=== PATIENT | male | born 1955 | race Caucasian/White ===

== ENCOUNTER 2016-08-03 20:15 | Emergency (ER) | payer MEDICAID ==
--- NOTE | 2016-08-03 23:43 | EDM.PDOC ---
ED HPI GENERAL MEDICAL PROBLEM - General Chief Complaint: General Stated Complaint: LOW BP/FELL/CONFUSION/DIZZY Time Seen by Provider: 08/03/16 21:40 Source of Information: Reports: Patient, Family History Limitations: Reports: No limitations - History of Present Illness INITIAL COMMENTS - FREE TEXT/NARRATIVE: pt was found on the floor and the pt has no recall of the incident. He seemed more confused this pm. His is concerned about the tremor He is also having pin in the left shoulder Onset: gradual Duration: Day(s):, Other (pt was on the floor this during last nite and he has no recall of that. ) Location: Reports: upper extremity, left Associated Symptoms: Reports: confusion, weakness - Related Data Allergies Allergy/AdvReac Type Severity Reaction Status Date / Time Latex, Natural Rubber Allergy Cannot Verified 08/03/16 22:03 Remember Home Meds: Home Meds Carvedilol 6.25 mg PO BID 09/04/14 [History] Citalopram [Citalopram HBr] 40 mg PO BEDTIME 09/04/14 [History] Levothyroxine 175 mcg PO QAM 12/29/14 [History] Fluticasone/Salmeterol [Advair 250-50 Diskus] 1 puff INH BID 05/27/15 [History] Aspirin 81 mg PO QAM 05/29/15 [History] Simvastatin [Zocor] 40 mg PO BEDTIME 12/08/15 [History] Hydrocodone/Acetaminophen [Hydrocodon-Acetaminophen 5-325] 1 tab PO ASDIRECTED PRN 12/20/15 [History] Pantoprazole 20 mg PO DAILY 04/13/16 [History] Zolpidem [Ambien] 10 mg PO BEDTIME PRN 05/15/16 [History] Calcium Carb/Vitamin D3/Vit K1 [Calcium + Vit D & K Chew] 1 tab PO DAILY [History] Cholecalciferol (Vitamin D3) [Vitamin D3] 1,000 units PO DAILY 05/28/16 [History ] Cyanocobalamin (Vitamin B-12) [Vitamin B-12] 1,000 mcg SL DAILY 05/28/16 [ History] Diclofenac Sodium [Voltaren 1% Gel] 4 gm TOP QID PRN 05/28/16 [History] Folic Acid 1 mg PO DAILY 05/28/16 [History] Multivitamin [Multiple Vitamins] 1 tab PO DAILY 05/28/16 [History] Methocarbamol [Methocarbamol] 500 mg PO Q6H PRN 06/10/16 [History] oxyCODONE HCl/Acetaminophen [Percocet 5-325 mg Tablet] 1 - 2 tab PO Q4H PRN 09/21 [History] predniSONE [Prednisone] 10 mg PO DAILY 06/10/16 [History] Past Medical History HEENT History: Reports: Allergic rhinitis, Cataract, Hard of hearing, Impaired vision, Other (see below) Other HEENT History: deaf right ear Cardiovascular History: Reports: Angina, CAD, Heart Failure, High cholesterol, Hypertension, [place], SOB on exertion, Stents, Other (see below) Other Cardiovascular History: recent chest pain Respiratory History: Reports: COPD, Pneumonia, recurrent, Sleep apnea, SOB, Other (see below) Other Respiratory History: C pap at night. Home O2 at night. Gastrointestinal History: Reports: Hemorrhoids, Other (see below) Other Gastrointestinal History: girth 63" last bm 02/03/15. 88 # wt loss since may. painful zyphoid process. 06/01/16 fluid filled mass removed from zyphoid process Musculoskeletal History: Reports: Arthritis, Back pain, chronic, Fracture, Osteoarthritis Other Musculoskeletal History: T1-C4 neck fusion, cortisone shots in knees/ shoulders Neurological History: Reports: Concussion Psychiatric History: Reports: Depression Endocrine/Metabolic History: Reports: Hypothyroidism, Obesity/BMI 30+ Hematologic History: Reports: B12 deficiency - Infectious Disease History Infectious Disease History: Reports: Chicken pox - Past Surgical History HEENT Surgical History: Reports: Cataract surgery, Oral surgery, Tonsillectomy Cardiovascular Surgical History: Reports: Coronary artery stent, Other (see below) Other Cardiovascular Surgeries/Procedures: angiogram GI Surgical History: Reports: Bariatric procedure, Cholecystectomy, Colonoscopy , EGD, Hernia, abdominal, Polypectomy Neurological Surgical History: Reports: C-Spine, Spinal fusion Musculoskeletal Surgical History: Reports: Arthroscopic knee Social & Family History - Tobacco Use Smoking Status *Q: Never Smoker Years of Tobacco use: 40 Packs/Tins Daily: 0 Used Tobacco, but Quit: Yes Month Tobacco Last Used: 0 Second Hand Smoke Exposure: No - Caffeine Use Caffeine Use: Reports: Tea - Alcohol Use Days Per Week of Alcohol Use: 0 - Recreational Drug Use Recreational Drug Use: No - Living Situation & Occupation Living situation: Reports: , with spouse Occupation: retired ED ROS GENERAL - Review of Systems Review Of Systems: See Below Constitutional: Reports: other (confusion) HEENT: Reports: No symptoms Respiratory: Reports: no symptoms Cardiovascular: Reports: No symptoms Endocrine: Reports: no symptoms GI/Abdominal: Reports: No symptoms : Reports: no symptoms Musculoskeletal: Reports: no symptoms Skin: Reports: no symptoms Neurological: Reports: confusion, other (pt is having severe memory issues. ) Psychiatric: Reports: Confusion, Other (pt has been forgetful for awhile but this is much worse. ) ED EXAM, GENERAL - Physical Exam Exam: See Below Free Text/Narrative:: Pt arrived with increasing confusion. It is difficult to get an idea when this seemed to start getting bad but by history it is definitely worse. He was found lying on the floor last nite and he had no idea how he got there. He does use narcotics and at this point Dr Neumann advised him not to use any at this point. Exam Limited By: Other (pt is quite forgetful.) General Appearance: alert, other (pt is just not able to remember things. I am not able to figure out exactly when that started. ) Ears: normal TMs Nose: normal inspection Throat/Mouth: Normal inspection Head: atraumatic Neck: normal inspection Respiratory/Chest: no respiratory distress Cardiovascular: regular rate, rhythm GI/Abdominal: soft, non tender (Male) Exam: Deferred Rectal (Males) Exam: Deferred Back Exam: normal inspection Extremities: normal inspection Neurological: alert, inattentive, confused, disoriented, slow to respond Course - Vital Signs Last Recorded V/S: Last Vital Signs Temp 37.0 C 08/03/16 23:59 Pulse 56 L 08/03/16 23:59 Resp 16 08/03/16 23:59 BP 144/84 H 08/03/16 23:59 Pulse Ox 98 08/03/16 23:59 - Orders/Labs/Meds Orders: Active Orders 24 hr Category Date Time Status EKG Documentation Completion [RC] ASDIRECTED Care 08/03/16 23:44 Active Abdomen Pelvis w Cont [CT] Stat Exams 08/04/16 01:01 Taken Head wo Cont [CT] Stat Exams 08/03/16 21:54 Taken Iopamidol [Isovue-300 (61%)] Med 08/04/16 01:15 Active 150 ml IV . DIRECTED Sodium Chloride 0.9% [Normal Saline] 1,000 ml Med 08/03/16 23:45 Active IV ASDIRECTED Sodium Chloride 0.9% [Normal Saline] 85 ml Med 08/04/16 01:15 Active IV ASDIRECTED Sodium Chloride 0.9% [Saline Flush] Med 08/04/16 01:07 Active 10 ml FLUSH ASDIRECTED PRN EKG 12 Lead [EK] Routine Ther 08/03/16 23:44 Ordered Medication Orders Sodium Chloride (Normal Saline) 1,000 mls @ 500 mls/hr IV ASDIRECTED MADHU Last Admin: 08/03/16 23:55 Dose: 500 mls/hr Sodium Chloride (Normal Saline) 85 mls @ 3 mls/sec IV ASDIRECTED MADHU Last Admin: 08/04/16 01:28 Dose: 3 mls/sec Iopamidol (Isovue-300 (61%)) 150 ml IV . DIRECTED [facility] Last Admin: 08/04/16 01:28 Dose: 150 ml Sodium Chloride (Saline Flush) 10 ml FLUSH ASDIRECTED PRN PRN Reason: Keep Vein Open Last Admin: 08/04/16 01:28 Dose: 10 ml Labs: Laboratory Tests 08/03/16 08/03/16 08/03/16 Range/Units 22:02 22:02 23:36 WBC 8.7 (4.5-11.0) K/uL RBC 4.75 (4.30-5.90) M/uL Hgb 14.3 (12.0-15.0) g/dL Hct 44.3 (40.0-54.0) % MCV 93 (80-98) fL MCH 30 (27-31) pg MCHC 32 (32-36) % Plt Count 269 (150-400) K/uL Neut % (Auto) 64 (36-66) % Lymph % (Auto) 21 L (24-44) % [place] % (Auto) 13 H (2-6) % Eos % (Auto) 2 (2-4) % Baso % (Auto) 1 (0-1) % Ammonia 7 L (11-32) mmol/L Creatine Kinase (39-308) U/L Troponin I (0.000-0.056) ng/mL Lipase (73-393) U/L TSH, Ultra Sensitive (0.358-3.740) uIU/mL Urine Color [place] Urine Appearance Cloudy Urine pH 5.0 (4.5-8.0) Ur Specific [place] 1.025 (1.008-1.030) Urine Protein Negative (NEGATIVE) mg/dL Urine Glucose (UA) Normal (NEGATIVE) mg/dL Urine Ketones 15 H (NEGATIVE) mg/dL Urine Occult Blood Negative (NEGATIVE) Urine Nitrite Negative (NEGAITVE) Urine Bilirubin Small (NEGATIVE) Urine Urobilinogen 4 (NORMAL) mg/dL Ur Leukocyte Esterase Negative (NEGATIVE) Urine RBC 0-5 (0-5) Urine WBC 0-5 (0-5) Ur Epithelial Cells Moderate Amorphous Sediment Few Urine Bacteria Few Urine Mucus Few 08/03/16 08/03/16 08/04/16 Range/Units 23:45 23:45 00:10 WBC (4.5-11.0) K/uL RBC (4.30-5.90) M/uL Hgb (12.0-15.0) g/dL Hct (40.0-54.0) % MCV (80-98) fL MCH (27-31) pg MCHC (32-36) % Plt Count (150-400) K/uL Neut % (Auto) (36-66) % Lymph % (Auto) (24-44) % [place] % (Auto) (2-6) % Eos % (Auto) (2-4) % Baso % (Auto) (0-1) % Ammonia (11-32) mmol/L Creatine Kinase 96 (39-308) U/L Troponin I < 0.017 (0.000-0.056) ng/mL Lipase (73-393) U/L TSH, Ultra Sensitive 0.592 (0.358-3.740) uIU/mL Urine Color Urine Appearance Urine pH (4.5-8.0) Ur Specific [place] (1.008-1.030) Urine Protein (NEGATIVE) mg/dL Urine Glucose (UA) (NEGATIVE) mg/dL Urine Ketones (NEGATIVE) mg/dL Urine Occult Blood (NEGATIVE) Urine Nitrite (NEGAITVE) Urine Bilirubin (NEGATIVE) Urine Urobilinogen (NORMAL) mg/dL Ur Leukocyte Esterase (NEGATIVE) Urine RBC (0-5) Urine WBC (0-5) Ur Epithelial Cells Amorphous Sediment Urine Bacteria Urine Mucus 08/04/16 Range/Units 01:01 WBC (4.5-11.0) K/uL RBC (4.30-5.90) M/uL Hgb (12.0-15.0) g/dL Hct (40.0-54.0) % MCV (80-98) fL MCH (27-31) pg MCHC (32-36) % Plt Count (150-400) K/uL Neut % (Auto) (36-66) % Lymph % (Auto) (24-44) % [place] % (Auto) (2-6) % Eos % (Auto) (2-4) % Baso % (Auto) (0-1) % Ammonia (11-32) mmol/L Creatine Kinase (39-308) U/L Troponin I (0.000-0.056) ng/mL Lipase 721 H (73-393) U/L TSH, Ultra Sensitive (0.358-3.740) uIU/mL Urine Color Urine Appearance Urine pH (4.5-8.0) Ur Specific [place] (1.008-1.030) Urine Protein (NEGATIVE) mg/dL Urine Glucose (UA) (NEGATIVE) mg/dL Urine Ketones (NEGATIVE) mg/dL Urine Occult Blood (NEGATIVE) Urine Nitrite (NEGAITVE) Urine Bilirubin (NEGATIVE) Urine Urobilinogen (NORMAL) mg/dL Ur Leukocyte Esterase (NEGATIVE) Urine RBC (0-5) Urine WBC (0-5) Ur Epithelial Cells Amorphous Sediment Urine Bacteria Urine Mucus Meds: Medications Generic Name Dose Route Start Last Admin Trade Name Freq PRN Reason Stop Dose Admin Sodium Chloride 1,000 mls @ 500 mls/hr 08/03/16 23:45 08/03/16 23:55 Normal Saline IV 500 mls/hr ASDIRECTED MADHU Administration Sodium Chloride 85 mls @ 3 mls/sec 08/04/16 01:15 08/04/16 01:28 Normal Saline IV 3 mls/sec ASDIRECTED MADHU Administration Iopamidol 150 ml 08/04/16 01:15 08/04/16 01:28 Isovue-300 (61%) IV 150 ml . DIRECTED MADHU Administration Sodium Chloride 10 ml 08/04/16 01:07 08/04/16 01:28 Saline Flush FLUSH 10 ml ASDIRECTED PRN Administration Keep Vein Open - Re-Assessments/Exams Free Text/Narrative Re-Assessment/Exam: 08/04/16 02:26 Pt has elevated liver enzymes with an sgot of 400 and a alt of 363. His bilirubin is 2.2. He hs a normal hg and wbc. He has no abdomanal pain. 08/04/16 02:28 He had a cat scn of the head that showed chronic changes but nothing acute. He had a cat scan of the abdoman pelvis which was neg for acute findings. He does have fatty infiltration. -- of the liver. He was found to be dehydrated and was given a liter of fluid. Departure - Departure Time of Disposition: 02:30 Disposition: Home, Self-Care 01 Condition: fair Clinical Impression: Confusion, Narcotic dependence, Dehydration Forms: ED Department Discharge Care Plan Goals: rtc tomorrow if possible for an MRI of the head, rtc to Er if symptoms are worse. Keep appt with Meche Nolen. push fluids. - My Orders Last 24 Hours: My Active Orders 08/03/16 21:54 Head wo Cont [CT] Stat 08/03/16 23:44 EKG Documentation Completion [RC] ASDIRECTED EKG 12 Lead [EK] Routine 08/03/16 23:45 Sodium Chloride 0.9% [Normal Saline] 1,000 ml IV ASDIRECTED 08/04/16 01:01 Abdomen Pelvis w Cont [CT] Stat 08/04/16 01:07 Sodium Chloride 0.9% [Saline Flush] 10 ml FLUSH ASDIRECTED PRN 08/04/16 01:15 Iopamidol [Isovue-300 (61%)] 150 ml IV . DIRECTED Sodium Chloride 0.9% [Normal Saline] 85 ml IV ASDIRECTED - Assessment/Plan Last 24 Hours: My Active Orders 08/03/16 21:54 Head wo Cont [CT] Stat 08/03/16 23:44 EKG Documentation Completion [RC] ASDIRECTED EKG 12 Lead [EK] Routine 08/03/16 23:45 Sodium Chloride 0.9% [Normal Saline] 1,000 ml IV ASDIRECTED 08/04/16 01:01 Abdomen Pelvis w Cont [CT] Stat 08/04/16 01:07 Sodium Chloride 0.9% [Saline Flush] 10 ml FLUSH ASDIRECTED PRN 08/04/16 01:15 Iopamidol [Isovue-300 (61%)] 150 ml IV . DIRECTED Sodium Chloride 0.9% [Normal Saline] 85 ml IV ASDIRECTED
[2016-08-03] MEDS ORDERED: Sodium Chloride 0.9% 1,000 ML IV SCH (23:45)
[2016-08-04] MEDS ORDERED: Sodium Chloride 0.9% 10 ML Syringe FLUSH PRN (01:07)
[2016-08-04] MEDS ORDERED: Iopamidol 612 MG/ML 150 ML Bottle IV SCH (01:15)
[2016-08-04 04:12] VITALS: BP 172/86
== END 2016-08-04 02:55 | disposition home or self-care (01) ==
LOC: JP.ED 20:15
DX: R41.0 Disorientation, unspecified (principal); E86.0 Dehydration; F11.20 Opioid dependence, uncomplicated; R79.89 Other specified abnormal findings of blood chemistry; I25.10 Atherosclerotic heart disease of native coronary artery without angina pectoris; I50.9 Heart failure, unspecified; E78.00 Pure hypercholesterolemia, unspecified; I10 Essential (primary) hypertension; I25.2 Old myocardial infarction; J44.9 Chronic obstructive pulmonary disease, unspecified; F32.9 Major depressive disorder, single episode, unspecified; E03.9 Hypothyroidism, unspecified; E53.8 Deficiency of other specified B group vitamins; Z91.040 Latex allergy status; Z79.82 Long term (current) use of aspirin; Z79.899 Other long term (current) drug therapy; Z95.5 Presence of coronary angioplasty implant and graft
CPT/HCPCS: 36415; 70450; 74177; 81001; 82140; 82550; 83690; 84443; 84484; 85025; 93005; J7030; J7040; J7050; 96360; 96361; 99285-25

== ENCOUNTER 2016-08-05 08:55 | Emergency (ER) | payer MEDICAID ==
--- NOTE | 2016-08-05 09:23 | EDM.PDOC ---
ED HPI GENERAL MEDICAL PROBLEM - General Chief Complaint: General Stated Complaint: WEAKNESS Time Seen by Provider: 08/05/16 09:10 Source of Information: Reports: Patient, EMS History Limitations: Reports: No limitations - History of Present Illness INITIAL COMMENTS - FREE TEXT/NARRATIVE: 60-year-old male brought in by EMS after having a syncopal episode at home. He' s been having more weakness over the past several months, and increased intermittent tremor. He was seen in the emergency room just 2 days ago for weakness and a large work up including a CT of his head abdomen and pelvis showed no acute findings. Today he had the dog outside, came into the house and was taken the dog's leash off when he felt lightheaded so he stood up to go " laid down" but fainted onto the floor. He did not get injured. He has been doing this more often lately but it scared his so she called the ambulance. He received no treatment in route, was stable, alert with normal vitals. He has an intermittent tremor of the upper extremities bilaterally which does not seem to be related to activity it seems to be related to his emotional state as it increases when he is talking about his symptoms. Associated Symptoms: Reports: other (Patient has chronic pain issues). Denies: fever/chills, headaches Left Shoulder Pain Score (Numeric/FACES): 5 - Related Data Allergies Allergy/AdvReac Type Severity Reaction Status Date / Time Latex, Natural Rubber Allergy Cannot Verified 08/05/16 09:04 Remember Home Meds: Home Meds Carvedilol 6.25 mg PO BID 09/04/14 [History] Citalopram [Citalopram HBr] 40 mg PO BEDTIME 09/04/14 [History] Levothyroxine 175 mcg PO QAM 12/29/14 [History] Fluticasone/Salmeterol [Advair 250-50 Diskus] 1 puff INH BID 05/27/15 [History] Aspirin 81 mg PO QAM 05/29/15 [History] Simvastatin [Zocor] 40 mg PO BEDTIME 12/08/15 [History] Hydrocodone/Acetaminophen [Hydrocodon-Acetaminophen 5-325] 1 tab PO ASDIRECTED PRN 12/20/15 [History] Pantoprazole 20 mg PO DAILY 04/13/16 [History] Zolpidem [Ambien] 10 mg PO BEDTIME PRN 05/15/16 [History] Calcium Carb/Vitamin D3/Vit K1 [Calcium + Vit D & K Chew] 1 tab PO DAILY [History] Cholecalciferol (Vitamin D3) [Vitamin D3] 1,000 units PO DAILY 05/28/16 [History ] Cyanocobalamin (Vitamin B-12) [Vitamin B-12] 1,000 mcg SL DAILY 05/28/16 [ History] Folic Acid 1 mg PO DAILY 05/28/16 [History] predniSONE [Prednisone] 10 mg PO DAILY 06/10/16 [History] Cyanocobalamin (Vitamin B12) [Vitamin B12] 1,000 mcg IJ ASDIRECTED 08/05/16 [ History] Pediatric Multivit Comb No.42 [Flintstones] 1 each PO DAILY 08/05/16 [History] Past Medical History HEENT History: Reports: Allergic rhinitis, Cataract, Hard of hearing, Impaired vision, Other (see below) Other HEENT History: deaf right ear Cardiovascular History: Reports: Angina, CAD, Heart Failure, High cholesterol, Hypertension, [place], SOB on exertion, Stents, Other (see below) Other Cardiovascular History: recent chest pain Respiratory History: Reports: COPD, Pneumonia, recurrent, Sleep apnea, SOB, Other (see below) Other Respiratory History: C pap at night. Home O2 at night. Gastrointestinal History: Reports: Hemorrhoids, Other (see below) Other Gastrointestinal History: girth 63". 88 # wt loss since may. painful zyphoid process. 06/01/16 fluid filled mass removed from zyphoid process Musculoskeletal History: Reports: Arthritis, Back pain, chronic, Fracture, Osteoarthritis Other Musculoskeletal History: T1-C4 neck fusion, cortisone shots in knees/ shoulders Neurological History: Reports: Concussion Psychiatric History: Reports: Depression Endocrine/Metabolic History: Reports: Hypothyroidism, Obesity/BMI 30+ Hematologic History: Reports: B12 deficiency - Infectious Disease History Infectious Disease History: Reports: Chicken pox - Past Surgical History HEENT Surgical History: Reports: Cataract surgery, Oral surgery, Tonsillectomy Cardiovascular Surgical History: Reports: Coronary artery stent, Other (see below) Other Cardiovascular Surgeries/Procedures: angiogram GI Surgical History: Reports: Bariatric procedure, Cholecystectomy, Colonoscopy , EGD, Hernia, abdominal, Polypectomy Neurological Surgical History: Reports: C-Spine, Spinal fusion Musculoskeletal Surgical History: Reports: Arthroscopic knee Social & Family History - Tobacco Use Smoking Status *Q: Never Smoker Years of Tobacco use: 40 Packs/Tins Daily: 0 Used Tobacco, but Quit: Yes Month Tobacco Last Used: 0 Second Hand Smoke Exposure: No - Caffeine Use Caffeine Use: Reports: Tea - Alcohol Use Days Per Week of Alcohol Use: 0 - Recreational Drug Use Recreational Drug Use: No - Living Situation & Occupation Living situation: Reports: , with spouse Occupation: retired ED ROS GENERAL - Review of Systems Review Of Systems: See Below Constitutional: Reports: weakness. Denies: fever, chills Respiratory: Denies: shortness of breath Cardiovascular: Reports: Lightheadedness. Denies: Chest pain, Palpitations GI/Abdominal: Reports: Other (History of gastric bypass) : Reports: no symptoms Skin: Reports: bruising (Has some bruising on his left forearm from recent lab draws) Neurological: Reports: other (Patient is struggling with intermittent upper extremity tremor for the past several months) ED EXAM, GENERAL - Physical Exam Exam: See Below Exam Limited By: No limitations General Appearance: alert, no apparent distress Eye Exam: bilateral eye: EOMI, PERRL Throat/Mouth: Normal inspection Neck: No: carotid bruit Respiratory/Chest: no respiratory distress, lungs clear Cardiovascular: regular rate, rhythm, extra beats GI/Abdominal: soft, non tender Neurological: alert, oriented, no motor/sensory deficits, other (Patient has a fairly significant upper extremity rhythmic tremor which is absent when he is at rest) Skin Exam: Warm, Dry, Other (Some bruising present on the left forearm) Course - Vital Signs Last Recorded V/S: Last Vital Signs Temp 96.4 F 08/05/16 09:07 Pulse 60 08/05/16 09:07 Resp 16 08/05/16 09:07 BP 148/111 H 08/05/16 09:07 Pulse Ox 97 08/05/16 09:07 Orthostatic Blood Pressure [ 144/89 Standing] Orthostatic Blood Pressure [ 144/97 Sitting] Orthostatic Blood Pressure [ 144/81 Supine] - Orders/Labs/Meds Labs: Laboratory Tests 08/05/16 Range/Units 09:24 Sodium 142 (140-148) mmol/L Potassium 4.3 (3.6-5.2) mmol/L Chloride 105 (100-108) mmol/L Carbon Dioxide 31 (21-32) mmol/L Anion Gap 6.3 (5.0-14.0) mmol/L BUN 13 (7-18) mg/dL Creatinine 1.0 (0.8-1.3) mg/dL Est Cr Clr Drug Dosing 75.33 mL/min Estimated GFR (MDRD) > 60 (>60) Glucose 101 (74-106) mg/dL Calcium 8.5 (8.5-10.1) mg/dL - Re-Assessments/Exams Free Text/Narrative Re-Assessment/Exam: 08/05/16 09:42 His ER visit from 2 days ago was reviewed, electrolytes weren't drawn so a BMP was obtained. Orthostatic blood pressures were done and were normal. 08/05/16 09:57 Patient rested quietly without tremor while awaiting his BMP. Labs returned completely normal. His and [id number] then came in and while the patient was "sleeping" they were asking me questions about his health. Interestingly when they asked me about his tremor despite him being asleep he started to exhibit some tremor symptoms. They did not last long. He was discharged with a diagnosis of vasovagal syncope and will recheck with Meche Glynn in the clinic at 11:30 this morning as scheduled. Departure - Departure Time of Disposition: 11:05 Disposition: Home, Self-Care 01 Condition: good Clinical Impression: Syncope, vasovagal, Intermittent tremor Instructions: Tremor, Syncope, [id number] Referrals: PCP,None [Primary Care Provider] - Forms: ED Department Discharge Care Plan Goals: Recheck with Meche Glynn at 11:30 as scheduled.
[2016-08-05 09:27] VITALS: BP 148/111
== END 2016-08-05 11:05 | disposition home or self-care (01) ==
LOC: JP.ED 08:55
DX: R55 Syncope and collapse (principal); R25.1 Tremor, unspecified; I25.2 Old myocardial infarction; I25.10 Atherosclerotic heart disease of native coronary artery without angina pectoris; I20.9 Angina pectoris, unspecified; I50.9 Heart failure, unspecified; I10 Essential (primary) hypertension; E78.00 Pure hypercholesterolemia, unspecified; J44.9 Chronic obstructive pulmonary disease, unspecified; F32.9 Major depressive disorder, single episode, unspecified; E03.9 Hypothyroidism, unspecified; E66.9 Obesity, unspecified; Z68.35 Body mass index [BMI] 35.0-35.9, adult; Z98.49 Cataract extraction status, unspecified eye; Z95.5 Presence of coronary angioplasty implant and graft; Z98.84 Bariatric surgery status; Z90.49 Acquired absence of other specified parts of digestive tract; Z98.1 Arthrodesis status; Z98.890 Other specified postprocedural states; Z79.82 Long term (current) use of aspirin; Z79.899 Other long term (current) drug therapy; Z91.040 Latex allergy status
CPT/HCPCS: 36415; 80048; 99284

== ENCOUNTER 2016-08-08 23:21 | Emergency (ER) | payer MEDICAID ==
--- NOTE | 2016-08-08 23:42 | EDM.PDOC ---
ED HPI GENERAL MEDICAL PROBLEM - General Chief Complaint: General Stated Complaint: tremors Time Seen by Provider: 08/08/16 23:25 Source of Information: Reports: Patient, EMS History Limitations: Reports: No limitations - History of Present Illness INITIAL COMMENTS - FREE TEXT/NARRATIVE: 60-year-old male brought in because of a brief period of lightheadedness and weakness at home, it seems to have resolved now. No fevers or chills, no cough. He was just seen in the emergency room a few days ago after being hospitalized for syncope, he also has persistent intermittent tremor. The tremor seems to be more behavioral or psychosomatic than real, history was active in route until EMS told him to stop the tremor so they did take his blood pressure which he did. When I walked in the room he had no tremor until I started talking to him and his tremor began. Severity: mild Associated Symptoms: Reports: malaise, weakness - Related Data Allergies Allergy/AdvReac Type Severity Reaction Status Date / Time Latex, Natural Rubber Allergy Cannot Verified 08/08/16 23:28 Remember Home Meds: Home Meds Citalopram [Citalopram HBr] 40 mg PO BEDTIME 09/04/14 [History] Levothyroxine 175 mcg PO QAM 12/29/14 [History] Fluticasone/Salmeterol [Advair 250-50 Diskus] 1 puff INH BID 05/27/15 [History] Aspirin 81 mg PO QAM 05/29/15 [History] Hydrocodone/Acetaminophen [Hydrocodon-Acetaminophen 5-325] 1 tab PO ASDIRECTED PRN 12/20/15 [History] Pantoprazole 20 mg PO DAILY 04/13/16 [History] Calcium Carb/Vitamin D3/Vit K1 [Calcium + Vit D & K Chew] 1 tab PO DAILY [History] Cyanocobalamin (Vitamin B-12) [Vitamin B-12] 1,000 mcg SL DAILY 05/28/16 [ History] Folic Acid 1 mg PO DAILY 05/28/16 [History] Cyanocobalamin (Vitamin B12) [Vitamin B12] 1,000 mcg IJ Q14D 08/05/16 [History] Pediatric Multivit Comb No.42 [Flintstones] 1 each PO DAILY 08/05/16 [History] Cholecalciferol (Vitamin D3) [Vitamin D3] 5,000 unit PO DAILY 08/08/16 [History] Past Medical History HEENT History: Reports: Allergic rhinitis, Cataract, Hard of hearing, Impaired vision, Other (see below) Other HEENT History: deaf right ear Cardiovascular History: Reports: Angina, CAD, Heart Failure, High cholesterol, Hypertension, [place], SOB on exertion, Stents, Other (see below) Other Cardiovascular History: recent chest pain Respiratory History: Reports: COPD, Pneumonia, recurrent, Sleep apnea, SOB, Other (see below) Other Respiratory History: C pap at night. Home O2 at night. Gastrointestinal History: Reports: Hemorrhoids, Other (see below) Other Gastrointestinal History: girth 63". 88 # wt loss since may. painful zyphoid process. 06/01/16 fluid filled mass removed from zyphoid process Musculoskeletal History: Reports: Arthritis, Back pain, chronic, Fracture, Osteoarthritis Other Musculoskeletal History: T1-C4 neck fusion, cortisone shots in knees/ shoulders Neurological History: Reports: Concussion Psychiatric History: Reports: Depression Endocrine/Metabolic History: Reports: Hypothyroidism, Obesity/BMI 30+ Hematologic History: Reports: B12 deficiency - Infectious Disease History Infectious Disease History: Reports: Chicken pox - Past Surgical History HEENT Surgical History: Reports: Cataract surgery, Oral surgery, Tonsillectomy Cardiovascular Surgical History: Reports: Coronary artery stent, Other (see below) Other Cardiovascular Surgeries/Procedures: angiogram GI Surgical History: Reports: Bariatric procedure, Cholecystectomy, Colonoscopy , EGD, Hernia, abdominal, Polypectomy Neurological Surgical History: Reports: C-Spine, Spinal fusion Musculoskeletal Surgical History: Reports: Arthroscopic knee Social & Family History - Tobacco Use Smoking Status *Q: Former Smoker Years of Tobacco use: 40 Packs/Tins Daily: 0 Used Tobacco, but Quit: Yes Month Tobacco Last Used: 2009 Second Hand Smoke Exposure: No - Caffeine Use Caffeine Use: Reports: Tea - Alcohol Use Days Per Week of Alcohol Use: 0 - Recreational Drug Use Recreational Drug Use: No - Living Situation & Occupation Living situation: Reports: , with spouse Occupation: retired ED ROS GENERAL - Review of Systems Review Of Systems: See Below Constitutional: Reports: malaise, weakness. Denies: fever, chills Respiratory: Denies: shortness of breath Cardiovascular: Denies: Chest pain GI/Abdominal: Denies: Abdominal pain Neurological: Reports: tremors Psychiatric: Reports: Anxiety, Depression ED EXAM, GENERAL - Physical Exam Exam: See Below Exam Limited By: No limitations General Appearance: alert, no apparent distress Eye Exam: bilateral eye: EOMI Respiratory/Chest: no respiratory distress, lungs clear Cardiovascular: regular rate, rhythm GI/Abdominal: soft, non tender Neurological: alert, oriented, other (Intermittent upper extremity tremor) Skin Exam: Other (Numerous bruises on his forearms) Course - Vital Signs Last Recorded V/S: Last Vital Signs Temp 98.7 F 08/08/16 23:26 Pulse 76 08/08/16 23:26 Resp 20 08/08/16 23:26 BP 167/116 H 08/09/16 00:12 Pulse Ox 95 08/08/16 23:26 - Orders/Labs/Meds Meds: Medications Discontinued Medications Generic Name Dose Route Start Last Admin Trade Name Fremelissa PRN Reason Stop Dose Admin Carvedilol 6.25 mg 08/09/16 00:05 08/09/16 00:12 Coreg PO 08/09/16 00:06 6.25 mg ONETIME ONE Administration Carvedilol Confirm 08/09/16 00:07 08/09/16 00:13 Coreg Administered 08/09/16 00:08 Not Given Dose 12.5 mg .ROUTE .STK-MED ONE - Re-Assessments/Exams Free Text/Narrative Re-Assessment/Exam: 08/08/16 23:42 While the patient was being registered and evaluated by nursing and went to his recent clinic records in hospital records, he has consultations with cardiology and neurology upcoming. His labs other than some mildly elevated liver enzymes have been stable. Departure - Departure Time of Disposition: 01:15 Disposition: Home, Self-Care 01 Condition: good Clinical Impression: Tremor Hypertension Qualifiers: Hypertension type: essential hypertension Qualified Code(s): I10 - Essential ( primary) hypertension Instructions: Essential Tremor, Hypertension, [id number] Referrals: PCP,None [Primary Care Provider] - Forms: ED Department Discharge Care Plan Goals: Consider restarting one half pill of carvedilol twice daily until your upcoming rechecks with the specialty physicians.
[2016-08-09] MEDS ORDERED: Carvedilol 6.25 MG Tab PO ONE (00:05)
[2016-08-09] MEDS ORDERED: Carvedilol 12.5 MG Tab ONE (00:07)
[2016-08-09 00:13] VITALS: BP 167/116
== END 2016-08-09 00:55 | disposition home or self-care (01) ==
LOC: JP.ED 23:21
DX: R25.1 Tremor, unspecified (principal); I11.0 Hypertensive heart disease with heart failure; I50.9 Heart failure, unspecified; I25.10 Atherosclerotic heart disease of native coronary artery without angina pectoris; I25.2 Old myocardial infarction; J44.9 Chronic obstructive pulmonary disease, unspecified; Z91.040 Latex allergy status; Z79.899 Other long term (current) drug therapy; Z79.82 Long term (current) use of aspirin; Z98.890 Other specified postprocedural states; Z87.891 Personal history of nicotine dependence
CPT/HCPCS: 99285; A9270

== ENCOUNTER 2016-08-09 09:43 | Observation (INO) | payer MEDICAID ==
--- NOTE | 2016-08-09 11:05 | EDM.PDOC ---
ED HISTORY OF PRESENT ILLNESS - General Chief Complaint: Syncope Stated Complaint: [facility] Time Seen by Provider: 08/09/16 10:00 Source: Reports: Patient, Family, RN notes reviewed History Limitations: Reports: No limitations - History of Present Illness INITIAL COMMENTS - FREE TEXT/NARRATIVE: 60-year-old male brought to the emergency room by Ambulance with complaint of recurrent syncope Patient seen in the emergency room last night and seen by with feeling of tremors of extremity and complaint of near syncope. Found to have hypertension and given dose of carvedilol and sent home. This morning was walking dog and came into house and passed out and collapsed on floor. Friend noticed eyes rolling back and called 911. When picked up by ambulance patient was alert and oriented. Has had number of trips to the emergency room for similar symptoms recently. CT scan of abdomen and pelvis gave evidence of fatty liver. CT scan of head with evidence of micro-ischemia. Ultrasound carotid arteries without hemodynamic findings. No chest pain or shortness of breath. Has chronic neck pain with 2 previous surgical procedures. Has history of hypertension for which he is on carvedilol. Other medicines include aspirin 81 mg daily calcium and vitamin D daily carvedilol 6.25 mg twice daily citalopram 40 mg daily diclofenac gel 4 times daily Advair 1 puff twice daily folic acid 1 mg daily hydrocodone as needed levothyroxin 175 mcg daily naproxen 500 mg twice daily pantoprazole 20 mg once daily simvastatin 40 mg once daily vitamin B12 1000 mcg daily multivitamins daily Patient with history of previous chest pain. Does admit to history of multiple joint discomfort for which she sees rheumatology and is on prednisone 10 mg daily - Related Data Allergies/ADRs: Allergies Allergy/AdvReac Type Severity Reaction Status Date / Time Latex, Natural Rubber Allergy Cannot Verified 08/09/16 09:50 Remember Home Meds: Home Meds Citalopram [Citalopram HBr] 40 mg PO BEDTIME 09/04/14 [History] Levothyroxine 175 mcg PO QAM 12/29/14 [History] Fluticasone/Salmeterol [Advair 250-50 Diskus] 1 puff INH BID 05/27/15 [History] Aspirin 81 mg PO QAM 05/29/15 [History] Hydrocodone/Acetaminophen [Hydrocodon-Acetaminophen 5-325] 1 tab PO ASDIRECTED PRN 12/20/15 [History] Pantoprazole 20 mg PO DAILY 04/13/16 [History] Calcium Carb/Vitamin D3/Vit K1 [Calcium + Vit D & K Chew] 1 tab PO DAILY [History] Cyanocobalamin (Vitamin B-12) [Vitamin B-12] 1,000 mcg SL DAILY 05/28/16 [ History] Folic Acid 1 mg PO DAILY 05/28/16 [History] Cyanocobalamin (Vitamin B12) [Vitamin B12] 1,000 mcg IJ Q14D 08/05/16 [History] Pediatric Multivit Comb No.42 [Flintstones] 1 each PO DAILY 08/05/16 [History] Cholecalciferol (Vitamin D3) [Vitamin D3] 5,000 unit PO DAILY 08/08/16 [History] Past Medical History HEENT History: Reports: Allergic rhinitis, Cataract, Hard of hearing, Impaired vision, Other (see below) Other HEENT History: deaf right ear Cardiovascular History: Reports: Angina, CAD, Heart Failure, High cholesterol, Hypertension, [place], SOB on exertion, Stents, Other (see below) Other Cardiovascular History: recent chest pain Respiratory History: Reports: COPD, Pneumonia, recurrent, Sleep apnea, SOB, Other (see below) Other Respiratory History: C pap at night. Home O2 at night. Gastrointestinal History: Reports: Hemorrhoids, Other (see below) Other Gastrointestinal History: girth 63". 88 # wt loss since may. painful zyphoid process. 06/01/16 fluid filled mass removed from zyphoid process Musculoskeletal History: Reports: Arthritis, Back pain, chronic, Fracture, Osteoarthritis Other Musculoskeletal History: T1-C4 neck fusion, cortisone shots in knees/ shoulders Neurological History: Reports: Concussion Psychiatric History: Reports: Depression Endocrine/Metabolic History: Reports: Hypothyroidism, Obesity/BMI 30+ Hematologic History: Reports: B12 deficiency - Infectious Disease History Infectious Disease History: Reports: Chicken pox - Past Surgical History Head Surgeries/Procedures: Reports: None HEENT Surgical History: Reports: Cataract surgery, Oral surgery, Tonsillectomy Cardiovascular Surgical History: Reports: Coronary artery stent, Other (see below) Other Cardiovascular Surgeries/Procedures: angiogram Respiratory Surgical History: Reports: None GI Surgical History: Reports: Bariatric procedure, Cholecystectomy, Colonoscopy , EGD, Hernia, abdominal, Polypectomy Male Surgical History: Reports: None Endocrine Surgical History: Reports: None Neurological Surgical History: Reports: C-Spine, Spinal fusion Musculoskeletal Surgical History: Reports: Arthroscopic knee Social & Family History - Tobacco Use Smoking Status *Q: Former Smoker Years of Tobacco use: 40 Packs/Tins Daily: 1 Used Tobacco, but Quit: Yes Month Tobacco Last Used: november Second Hand Smoke Exposure: No - Caffeine Use Caffeine Use: Reports: Tea - Alcohol Use Days Per Week of Alcohol Use: 0 - Recreational Drug Use Recreational Drug Use: No - Living Situation & Occupation Living situation: Reports: , with spouse Occupation: retired ED ROS GENERAL - Review of Systems Review Of Systems: See Below Constitutional: Reports: no symptoms HEENT: Reports: Other (headache) Respiratory: Reports: no symptoms Cardiovascular: Reports: Syncope Endocrine: Reports: no symptoms GI/Abdominal: Reports: No symptoms : Reports: no symptoms Musculoskeletal: Reports: neck pain, shoulder pain, joint pain Skin: Reports: no symptoms Neurological: Reports: syncope Psychiatric: Reports: No symptoms Hematologic/Lymphatic: Reports: no symptoms Immunologic: Reports: no symptoms ED EXAM, GENERAL - Physical Exam Exam: See Below Exam Limited By: No limitations General Appearance: alert, WD/WN, no apparent distress Eye Exam: bilateral eye: EOMI, normal inspection, PERRL Ears: normal external exam, normal canal, hearing grossly normal Ear Exam: bilateral ear: auricle normal Nose: normal inspection Throat/Mouth: Normal inspection, Normal lips, Normal gums, Normal oropharynx, Normal voice, No airway compromise Head: atraumatic, normocephalic Neck: normal inspection, supple, non-tender, full range of motion Respiratory/Chest: no respiratory distress, lungs clear, normal breath sounds, no accessory muscle use, chest non-tender Cardiovascular: regular rate, rhythm, other (bradycardia) GI/Abdominal: normal bowel sounds, soft, non tender Extremities: normal inspection Neurological: alert, oriented, CN II-XII intact, normal cognition Psychiatric: normal affect Skin Exam: Warm, Dry, Intact Lymphatic: no adenopathy EKG INTERPRETATION EKG Date: 08/09/16 Rhythm: NSR [place]: normal P-wave: present QRS: normal ST-T: normal EKG Interpretation Comments: Sinus bradycardia Course - Vital Signs Text/Narrative:: ECG with evidence of sinus bradycardia. CT scan without evidence of pulmonary embolus or other acute intrathoracic abnormalities CT scan of brain with chronic white matter matter changes CMP with elevation of liver function studies and bilirubin Discussed with family and patient. With this being a second ambulance ride in the last 24 hours for similar symptoms Will admit to hospitalist service for evaluation and monitoring Discussed with Dr. Deacon Kessler Last Recorded V/S: Last Vital Signs Temp 96.4 F 08/09/16 09:46 Pulse 51 L 08/09/16 10:03 Resp 16 08/09/16 10:03 BP 181/103 H 08/09/16 12:51 Pulse Ox 95 08/09/16 10:03 Orthostatic Blood Pressure [ 170/115 Standing] Orthostatic Blood Pressure [ 192/119 Sitting] Orthostatic Blood Pressure [ 184/121 Supine] - Orders/Labs/Meds Orders: Active Orders 24 hr Category Date Time Status Cardiac Monitoring [RC] .As Directed Care 08/09/16 10:42 Active Cardiac Monitoring [RC] .As Directed Care 08/09/16 10:44 Active Cardiac Monitoring [RC] .As Directed Care 08/09/16 10:45 Active Orthostatic Vital Signs [RC] ASDIRECTED Care 08/09/16 10:41 Active Ang Chest [CT] Stat Exams 08/09/16 10:57 Taken Chest 2V [CR] Stat Exams 08/09/16 10:43 Taken Head wo Cont [CT] Stat Exams 08/09/16 10:44 Taken Iopamidol [Isovue-370 (76%)] Med 08/09/16 11:30 Active 100 ml IV . DIRECTED Sodium Chloride 0.9% [Normal Saline] 100 ml Med 08/09/16 11:30 Active IV ASDIRECTED Sodium Chloride 0.9% [Saline Flush] Med 08/09/16 11:21 Active 10 ml FLUSH ONETIME PRN Medication Orders Sodium Chloride (Normal Saline) 100 mls @ 3.5 mls/sec IV ASDIRECTED MADHU Last Admin: 08/09/16 11:47 Dose: 4 mls/sec Iopamidol (Isovue-370 (76%)) 100 ml IV . DIRECTED MADHU Last Admin: 08/09/16 11:46 Dose: 100 ml Sodium Chloride (Saline Flush) 10 ml FLUSH ONETIME PRN PRN Reason: per radiology protocol Last Admin: 08/09/16 11:45 Dose: 10 ml Labs: Laboratory Tests 08/09/16 08/09/16 08/09/16 Range/Units 10:57 10:57 10:57 WBC 11.0 (4.5-11.0) K/uL RBC 4.70 (4.30-5.90) M/uL Hgb 14.1 (12.0-15.0) g/dL Hct 44.4 (40.0-54.0) % MCV 95 (80-98) fL MCH 30 (27-31) pg MCHC 32 (32-36) % Plt Count 278 (150-400) K/uL Neut % (Auto) 51 (36-66) % Lymph % (Auto) 35 (24-44) % [place] % (Auto) 11 H (2-6) % Eos % (Auto) 3 (2-4) % Baso % (Auto) 1 (0-1) % D-Dimer, Quantitative < 100 (0.0-400.0) ng/mL Sodium 140 (140-148) mmol/L Potassium 4.0 (3.6-5.2) mmol/L Chloride 104 (100-108) mmol/L Carbon Dioxide 31 (21-32) mmol/L Anion Gap 5.1 (5.0-14.0) mmol/L BUN 11 (7-18) mg/dL Creatinine 0.8 (0.8-1.3) mg/dL Est Cr Clr Drug Dosing 93.81 mL/min Estimated GFR (MDRD) > 60 (>60) Glucose 78 (74-106) mg/dL Calcium 8.7 (8.5-10.1) mg/dL Magnesium (1.8-2.4) mg/dL Total Bilirubin 1.7 H (0.2-1.0) mg/dL AST 98 H D (15-37) U/L ALT 238 H (12-78) U/L Alkaline Phosphatase 60 (46-116) U/L Troponin I (0.000-0.056) ng/mL Total Protein 6.6 (6.4-8.2) g/dL Albumin 3.4 (3.4-5.0) g/dL Globulin 3.2 (2.3-3.5) g/dL Albumin/Globulin Ratio 1.1 L (1.2-2.2) 08/09/16 Range/Units 10:57 WBC (4.5-11.0) K/uL RBC (4.30-5.90) M/uL Hgb (12.0-15.0) g/dL Hct (40.0-54.0) % MCV (80-98) fL MCH (27-31) pg MCHC (32-36) % Plt Count (150-400) K/uL Neut % (Auto) (36-66) % Lymph % (Auto) (24-44) % [place]y % (Auto) (2-6) % Eos % (Auto) (2-4) % Baso % (Auto) (0-1) % D-Dimer, Quantitative (0.0-400.0) ng/mL Sodium (140-148) mmol/L Potassium (3.6-5.2) mmol/L Chloride (100-108) mmol/L Carbon Dioxide (21-32) mmol/L Anion Gap (5.0-14.0) mmol/L BUN (7-18) mg/dL Creatinine (0.8-1.3) mg/dL Est Cr Clr Drug Dosing mL/min Estimated GFR (MDRD) (>60) Glucose (74-106) mg/dL Calcium (8.5-10.1) mg/dL Magnesium 1.9 (1.8-2.4) mg/dL Total Bilirubin (0.2-1.0) mg/dL AST (15-37) U/L ALT (12-78) U/L Alkaline Phosphatase (46-116) U/L Troponin I < 0.017 (0.000-0.056) ng/mL Total Protein (6.4-8.2) g/dL Albumin (3.4-5.0) g/dL Globulin (2.3-3.5) g/dL Albumin/Globulin Ratio (1.2-2.2) Meds: Medications Generic Name Dose Route Start Last Admin Trade Name Freq PRN Reason Stop Dose Admin Sodium Chloride 100 mls @ 3.5 mls/sec 08/09/16 11:30 08/09/16 11:47 Normal Saline IV 4 mls/sec ASDIRECTED MADHU Administration Iopamidol 100 ml 08/09/16 11:30 08/09/16 11:46 Isovue-370 (76%) IV 100 ml . DIRECTED MADHU Administration Sodium Chloride 10 ml 08/09/16 11:21 08/09/16 11:45 Saline Flush FLUSH 10 ml ONETIME PRN Administration per radiology protocol Discontinued Medications Generic Name Dose Route Start Last Admin Trade Name Freq PRN Reason Stop Dose Admin Amlodipine Besylate 5 mg 08/09/16 11:58 08/09/16 12:07 Norvasc PO 08/09/16 11:59 5 mg ONETIME ONE Administration Departure - Departure Time of Disposition: 12:54 Disposition: Admitted As Inpatient 65 Clinical Impression: Syncope Forms: ED Department Discharge - My Orders Last 24 Hours: My Active Orders 08/09/16 10:41 Orthostatic Vital Signs [RC] ASDIRECTED 08/09/16 10:42 Cardiac Monitoring [RC] .As Directed 08/09/16 10:43 Chest 2V [CR] Stat 08/09/16 10:44 Cardiac Monitoring [RC] .As Directed Head wo Cont [CT] Stat 08/09/16 10:45 Cardiac Monitoring [RC] .As Directed 08/09/16 10:57 Ang Chest [CT] Stat 08/09/16 11:21 Sodium Chloride 0.9% [Saline Flush] 10 ml FLUSH ONETIME PRN 08/09/16 11:30 Iopamidol [Isovue-370 (76%)] 100 ml IV . DIRECTED Sodium Chloride 0.9% [Normal Saline] 100 ml IV ASDIRECTED - Assessment/Plan Last 24 Hours: My Active Orders 08/09/16 10:41 Orthostatic Vital Signs [RC] ASDIRECTED 08/09/16 10:42 Cardiac Monitoring [RC] .As Directed 08/09/16 10:43 Chest 2V [CR] Stat 08/09/16 10:44 Cardiac Monitoring [RC] .As Directed Head wo Cont [CT] Stat 08/09/16 10:45 Cardiac Monitoring [RC] .As Directed 08/09/16 10:57 Ang Chest [CT] Stat 08/09/16 11:21 Sodium Chloride 0.9% [Saline Flush] 10 ml FLUSH ONETIME PRN 08/09/16 11:30 Iopamidol [Isovue-370 (76%)] 100 ml IV . DIRECTED Sodium Chloride 0.9% [Normal Saline] 100 ml IV ASDIRECTED
[2016-08-09] MEDS ORDERED: Sodium Chloride 0.9% 10 ML Syringe FLUSH PRN (11:21)
[2016-08-09] MEDS ORDERED: Iopamidol 755 Mg/ML 100 ML Bottle IV SCH (11:30)
[2016-08-09] MEDS ORDERED: Sodium Chloride 0.9% 100 ML IV SCH (11:30)
[2016-08-09] MEDS ORDERED: amLODIPine 5 MG Tab PO ONE (11:58)
[2016-08-09] MEDS ORDERED: Ketorolac 30 MG/ML SDV IVPUSH ONE (14:51)
--- NOTE | 2016-08-09 15:06 | PCM.HP ---
H&P History of Present Illness - General Date of Service: 08/09/16 Admit Problem/Dx: Admission Diagnosis/Problem Admission Diagnosis/Problem Syncope Source of Information: Patient, Family, Provider History Limitations: Reports: No limitations - History of Present Illness Initial Comments - Free Text/Narative: Steve presents to the emergency room today with another episode of syncope. He has had several of them in the past week. One this morning happened while he was up and walking around and had just got back from walking the dog. He reports a mild sensation of lightheadedness prior to slumping on the floor. He does not think that he had any preceding chest pain or palpitations but has noticed a couple of episodes of palpitation in recent days. His reports that after he fell to the floor he seemed to be asleep for short while and then woke up and returned to normal fairly quickly. They did not notice any shaking or seizure-like activity at the time. This has been similar to the previous episodes during the week. He has noticed a couple of episodes of chest discomfort. These are relatively mild as far as severity occur on the left side of the chest and radiates to the shoulder. He thinks that they have happened mostly with rest over the past week or so. He hasn't taken anything to make them better. They often go away on their own after a number of minutes. The longest episode may have lasted 10 minutes. No associated symptoms such as shortness of breath or diaphoresis. His functional status has been stable and he has not noticed an increase in his dyspnea on exertion. His weight has been stable. He has had a couple of episodes of what he calls a tremor and then describes a shaking of his hands and his arms and in his upper extremities. No confusion or other abnormalities at the time. The episodes last only a short while and then resolve of their own. No reports of fevers or chills. Urine has been a little darker than usual. He has had an extensive workup this week for these episodes which has all been unremarkable. Workup in the emergency room today revealed mild elevation of bilirubin and AST and ALT but was otherwise unremarkable. Patient will be admitted for observation. Chest Pain Score (Numeric/FACES): 4 Headache Pain Score (Numeric/FACES): 5 - Related Data Allergies/Adverse Reactions: Allergies Allergy/AdvReac Type Severity Reaction Status Date / Time Latex, Natural Rubber Allergy Cannot Verified 08/09/16 09:50 Remember Home Medications: Home Meds Citalopram [Citalopram HBr] 40 mg PO BEDTIME 09/04/14 [History] Levothyroxine 175 mcg PO QAM 12/29/14 [History] Fluticasone/Salmeterol [Advair 250-50 Diskus] 1 puff INH BID 05/27/15 [History] Aspirin 81 mg PO QAM 05/29/15 [History] Hydrocodone/Acetaminophen [Hydrocodon-Acetaminophen 5-325] 1 tab PO ASDIRECTED PRN 12/20/15 [History] Pantoprazole 20 mg PO DAILY 04/13/16 [History] Calcium Carb/Vitamin D3/Vit K1 [Calcium + Vit D & K Chew] 1 tab PO DAILY [History] Cyanocobalamin (Vitamin B-12) [Vitamin B-12] 1,000 mcg SL DAILY 05/28/16 [ History] Folic Acid 1 mg PO DAILY 05/28/16 [History] Cyanocobalamin (Vitamin B12) [Vitamin B12] 1,000 mcg IJ Q14D 08/05/16 [History] Pediatric Multivit Comb No.42 [Flintstones] 1 each PO DAILY 08/05/16 [History] Cholecalciferol (Vitamin D3) [Vitamin D3] 5,000 unit PO DAILY 08/08/16 [History] predniSONE [Prednisone] 10 mg PO DAILY 08/09/16 [History] Past Medical History HEENT History: Reports: Allergic rhinitis, Cataract, Hard of hearing, Impaired vision, Other (see below) Other HEENT History: deaf right ear Cardiovascular History: Reports: Angina, CAD, Heart Failure, High cholesterol, Hypertension, MD, SOB on exertion, Stents, Other (see below) Other Cardiovascular History: recent chest pain Respiratory History: Reports: COPD, Pneumonia, recurrent, Sleep apnea, SOB, Other (see below) Other Respiratory History: C pap at night. Home O2 at night. Gastrointestinal History: Reports: Hemorrhoids, Other (see below) Other Gastrointestinal History: girth 63". 88 # wt loss since may. painful zyphoid process. 06/01/16 fluid filled mass removed from zyphoid process Musculoskeletal History: Reports: Arthritis, Back pain, chronic, Fracture, Osteoarthritis Other Musculoskeletal History: T1-C4 neck fusion, cortisone shots in knees/ shoulders Neurological History: Reports: Concussion Psychiatric History: Reports: Depression Endocrine/Metabolic History: Reports: Hypothyroidism, Obesity/BMI 30+ Hematologic History: Reports: B12 deficiency - Infectious Disease History Infectious Disease History: Reports: Chicken pox - Past Surgical History Head Surgeries/Procedures: Reports: None HEENT Surgical History: Reports: Cataract surgery, Oral surgery, Tonsillectomy Cardiovascular Surgical History: Reports: Coronary artery stent, Other (see below) Other Cardiovascular Surgeries/Procedures: angiogram Respiratory Surgical History: Reports: None GI Surgical History: Reports: Bariatric procedure, Cholecystectomy, Colonoscopy , EGD, Hernia, abdominal, Polypectomy Male Surgical History: Reports: None Endocrine Surgical History: Reports: None Neurological Surgical History: Reports: C-Spine, Spinal fusion Musculoskeletal Surgical History: Reports: Arthroscopic knee Social & Family History - Family History Cardiac: Reports: CAD (mom) - Tobacco Use Smoking Status *Q: Former Smoker Years of Tobacco use: 40 Packs/Tins Daily: 1 Used Tobacco, but Quit: Yes Month Tobacco Last Used: november Second Hand Smoke Exposure: No - Caffeine Use Caffeine Use: Reports: Tea - Alcohol Use Days Per Week of Alcohol Use: 0 - Recreational Drug Use Recreational Drug Use: No - Living Situation & Occupation Living situation: Reports: , with spouse Occupation: retired H&P Review of Systems - Review of Systems: Review Of Systems: See Below Free Text/Narrative: A complete 12 point review of systems was obtained. Pertinent positives and negatives are noted in the history of present illness. All other systems were reviewed and were negative except as noted. Exam - Exam Exam: See Below - Vital Signs Vital Signs: Last Vital Signs Temp 35.6 C 08/09/16 13:43 Pulse 54 L 08/09/16 13:43 Resp 16 08/09/16 13:43 BP 167/96 H 08/09/16 13:43 Pulse Ox 96 08/09/16 13:43 Orthostatic Blood Pressure [ 170/115 Standing] Orthostatic Blood Pressure [ 192/119 Sitting] Orthostatic Blood Pressure [ 184/121 Supine] Weight: 108.862 kg - Exam Quality Assessment: No: supplemental oxygen, urinary catheter General: alert, oriented, cooperative. No: mild distress HEENT: Conjunctiva clear, Posterior pharynx clear. No: Pupils reactive, Scleral icterus Neck: supple, trachea midline. No: lymphadenopathy, thyromegaly Lungs: Clear to auscultation, Normal respiratory effort Cardiovascular: regular rate, regular rhythm. No: systolic murmur Abdomen: normal bowel sounds, soft, other (obese). No: distention, tenderness Back Exam: normal inspection, full range of motion Extremities: normal inspection, normal pulses, edema (trace bilateral ankle edema). No: clubbing, cyanosis Peripheral Pulses: 2+: dorsalis pedis (L), dorsalis pedis (R) Skin: warm, dry, intact, ecchymosis (few small scattered bruises) Neuro Extensive - Mental Status: alert, oriented x3, nl response to commands Neuro Extensive - Motor, Sensory, Reflexes: CN II-XII intact. No: dysarthria, abnormal motor, tremor DTR: 0: bicep (R) Psychiatric: alert, normal affect - Patient Data Lab Results last 24 hrs: Laboratory Results - last 24 hr 08/09/16 08/09/16 08/09/16 Range/Units 10:57 10:57 10:57 WBC 11.0 (4.5-11.0) K/uL RBC 4.70 (4.30-5.90) M/uL Hgb 14.1 (12.0-15.0) g/dL Hct 44.4 (40.0-54.0) % MCV 95 (80-98) fL MCH 30 (27-31) pg MCHC 32 (32-36) % Plt Count 278 (150-400) K/uL Neut % (Auto) 51 (36-66) % Lymph % (Auto) 35 (24-44) % [place] % (Auto) 11 H (2-6) % Eos % (Auto) 3 (2-4) % Baso % (Auto) 1 (0-1) % D-Dimer, Quantitative < 100 (0.0-400.0) ng/mL Sodium 140 (140-148) mmol/L Potassium 4.0 (3.6-5.2) mmol/L Chloride 104 (100-108) mmol/L Carbon Dioxide 31 (21-32) mmol/L Anion Gap 5.1 (5.0-14.0) mmol/L BUN 11 (7-18) mg/dL Creatinine 0.8 (0.8-1.3) mg/dL Est Cr Clr Drug Dosing 93.81 mL/min Estimated GFR (MDRD) > 60 (>60) Glucose 78 (74-106) mg/dL Calcium 8.7 (8.5-10.1) mg/dL Magnesium (1.8-2.4) mg/dL Total Bilirubin 1.7 H (0.2-1.0) mg/dL AST 98 H D (15-37) U/L ALT 238 H (12-78) U/L Alkaline Phosphatase 60 (46-116) U/L Troponin I (0.000-0.056) ng/mL Total Protein 6.6 (6.4-8.2) g/dL Albumin 3.4 (3.4-5.0) g/dL Globulin 3.2 (2.3-3.5) g/dL Albumin/Globulin Ratio 1.1 L (1.2-2.2) Free T4 (0.76-1.46) ng/dL 08/09/16 08/09/16 Range/Units 10:57 11:00 WBC (4.5-11.0) K/uL RBC (4.30-5.90) M/uL Hgb (12.0-15.0) g/dL Hct (40.0-54.0) % MCV (80-98) fL MCH (27-31) pg MCHC (32-36) % Plt Count (150-400) K/uL Neut % (Auto) (36-66) % Lymph % (Auto) (24-44) % [place] % (Auto) (2-6) % Eos % (Auto) (2-4) % Baso % (Auto) (0-1) % D-Dimer, Quantitative (0.0-400.0) ng/mL Sodium (140-148) mmol/L Potassium (3.6-5.2) mmol/L Chloride (100-108) mmol/L Carbon Dioxide (21-32) mmol/L Anion Gap (5.0-14.0) mmol/L BUN (7-18) mg/dL Creatinine (0.8-1.3) mg/dL Est Cr Clr Drug Dosing mL/min Estimated GFR (MDRD) (>60) Glucose (74-106) mg/dL Calcium (8.5-10.1) mg/dL Magnesium 1.9 (1.8-2.4) mg/dL Total Bilirubin (0.2-1.0) mg/dL AST (15-37) U/L ALT (12-78) U/L Alkaline Phosphatase (46-116) U/L Troponin I < 0.017 (0.000-0.056) ng/mL Total Protein (6.4-8.2) g/dL Albumin (3.4-5.0) g/dL Globulin (2.3-3.5) g/dL Albumin/Globulin Ratio (1.2-2.2) Free T4 1.27 (0.76-1.46) ng/dL Result Diagrams: 08/09/16 10:57 08/09/16 10:57 Imaging Impressions last 24 hrs: CXR - images personally reviewed - no evidence for congestive heart failure, pneumonia or mass. Head CT - no acute intracranial pathology CT pulmonary angiogram - no evidence for ulnar embolism, pneumonia or intrathoracic abnormality EKG INTERPRETATION EKG Date: 08/09/16 Rhythm: NSR Rate (beats/min): 52 [place]: normal P-wave: present QRS: normal ST-T: normal QT: normal *Q Meaningful Use (ADM) - VTE *Q VTE Criteria *Q: - Stroke *Q Stroke Criteria *Q: - AMI *Q AMI Criteria *Q: - Problem List (1) Syncope SNOMED Code(s): 403901810 ICD Code: R55 - SYNCOPE AND COLLAPSE Status: Acute Current Visit: Yes Qualifiers: Syncope type: unspecified Qualified Code(s): R55 - Syncope and collapse (2) Accelerated hypertension SNOMED Code(s): 77527261 ICD Code: I10 - ESSENTIAL (PRIMARY) HYPERTENSION Status: Acute Current Visit: Yes (3) Hyperbilirubinemia SNOMED Code(s): 87697262 ICD Code: E80.6 - OTHER DISORDERS OF BILIRUBIN METABOLISM Status: Acute Current Visit: Yes (4) CAD (coronary artery disease), [place] coronary artery SNOMED Code(s): 3009468077968 ICD Code: I25.10 - ATHSCL HEART DISEASE OF [place] CORONARY ARTERY W/O ANG PCTRS Status: Chronic Current Visit: No Qualifiers: [place] vs. transplanted heart: [place] heart Associated angina: with unspecified angina Qualified Code(s): I25.119 - Atherosclerotic heart disease of [place] coronary artery with unspecified angina pectoris (5) Status post gastric bypass for obesity SNOMED Code(s): 871663342, 00688711, 401679169, 778706417 ICD Code: Z98.84 - BARIATRIC SURGERY STATUS Status: Chronic Current Visit : No Problem List Initiated/Reviewed/Updated: Yes Orders Last 24hrs: Active Orders 24 hr Category Date Time Status Patient Status Manage Transfer [TRANSFER] Routine ADT 08/09/16 14:52 Active Cardiac Monitoring [RC] .As Directed Care 08/09/16 10:42 Active Cardiac Monitoring [RC] .As Directed Care 08/09/16 10:44 Active Cardiac Monitoring [RC] .As Directed Care 08/09/16 10:45 Active Notify Provider Consults [RC] ASDIRECTED Care 08/09/16 12:55 Active Orthostatic Vital Signs [RC] ASDIRECTED Care 08/09/16 10:41 Active Consult to Physician [CONS] Routine Cons 08/09/16 12:55 Ordered Ang Chest [CT] Stat Exams 08/09/16 10:57 Taken Chest 2V [CR] Stat Exams 08/09/16 10:43 Taken Head wo Cont [CT] Stat Exams 08/09/16 10:44 Taken UA W/MICROSCOPIC [URIN] Routine Lab 08/09/16 14:56 Ordered Iopamidol [Isovue-370 (76%)] Med 08/09/16 11:30 Active 100 ml IV . DIRECTED Sodium Chloride 0.9% [Normal Saline] 100 ml Med 08/09/16 11:30 Active IV ASDIRECTED Sodium Chloride 0.9% [Saline Flush] Med 08/09/16 11:21 Active 10 ml FLUSH ONETIME PRN Resuscitation Status Routine Resus Stat 08/09/16 14:54 Ordered Medication Orders Sodium Chloride (Normal Saline) 100 mls @ 3.5 mls/sec IV ASDIRECTED MADHU Last Admin: 08/09/16 11:47 Dose: 4 mls/sec Iopamidol (Isovue-370 (76%)) 100 ml IV . DIRECTED MADHU Last Admin: 08/09/16 11:46 Dose: 100 ml Sodium Chloride (Saline Flush) 10 ml FLUSH ONETIME PRN PRN Reason: per radiology protocol Last Admin: 08/09/16 11:45 Dose: 10 ml Assessment/Plan Comment:: Assessment and plan - Syncope and collapse - exact etiology not entirely clear. Potential culprits could include dysrhythmia versus poor perfusion with accelerated hypertension versus occult coronary artery disease versus other. MRI of his brain was normal. He did wear a Holter monitor but did not have any events during that 48 hour period. No strong evidence for infection at this time. Vasovagal is less likely but could be considered. Thyroid testing is normal. Examination is benign. -Cardiac monitoring -Pulse oximetry overnight -Lexiscan stress test in the morning (knee arthritis limits ability to perform a treadmill test) -Amlodipine for his blood pressure elevation Abnormal hepatic panel enzymes - CT scan earlier in the week did reveal fatty liver. Bilirubin is elevated more than usual and AST and ALT have been slowly rising. Statin medication is currently on hold with concern that this could be contributing to his clinical condition. No acute pathology noted anatomically. -I agree that holding the statin is a good idea -Repeat labs in the morning -consider ultrasound if level is rising Accelerated hypertension - significant elevation of both systolic and diastolic blood pressures. He is off his carvedilol because of concern that may be contributing to his syncope. Seems to be responding well to a single dose of amlodipine given in the emergency room. -Amlodipine 5 mg daily, titrate as needed Coronary artery disease - History of 99% stenosis of the LAD status post placement of 2 stents approximately 5 years ago. Currently asymptomatic as far as I can tell based on history. Beta nadine currently on hold with concern that may be contributing to his syncope. Baseline heart rate is in the 50s. Status post gastric bypass for morbid obesity - significant weight loss and clinically seems to be doing quite well. -Continue vitamin supplements Maintenance issues - - DVT prophylaxis - Mechanical - GI prophylaxis - PPI - Nutrition - Regular diet - Mays catheter - Not indicated CODE STATUS - Full code Admission justification - Patient will be referred observation status for close monitoring, cardiac monitoring additional workup Disposition - Anticipate discharge to home after the hospital stay Primary care physician - Meche Kessler M.D.
[2016-08-09] MEDS ORDERED: Ondansetron 4 MG Tab.DIS PO PRN (16:08)
[2016-08-09] MEDS ORDERED: Ibuprofen 600 MG Tab PO PRN (16:08)
[2016-08-09] MEDS ORDERED: Acetaminophen 325 MG Tab PO PRN (16:08)
[2016-08-09] MEDS ORDERED: Polyethylene Glycol 3350 Powder 17 GM Packet PO PRN (16:08)
[2016-08-09] MEDS: Acetaminophen/HYDROcodone 325-5 MG Tab PO PRN (20:23)
[2016-08-09] MEDS: ADVAIR 250/50 INHALER (PTOM) INH SCH (20:26)
[2016-08-09] MEDS: Formoterol/Mometasone 200-5 MCG 8.8 GM Inhaler IH SCH (20:26)
[2016-08-09] MEDS ORDERED: Nitroglycerin 0.4 MG Tab.SL ONE (22:36)
[2016-08-09] MEDS ORDERED: Morphine 2 MG/ML Syringe IVPUSH STA (22:39)
[2016-08-09] MEDS ORDERED: Nitroglycerin 0.4 MG Tab.SL SL PRN (22:40)
--- NOTE | 2016-08-09 22:54 | PCM.SN ---
- Free Text/Narrative Note: time: 2229 Call from 2 N. nursing patient reports chest pain Vital signs are stable a; chest pain atypical p; labs; troponin. Imaging EKG, medications morphine 2 mg IV sublingual nitroglycerin Awaiting troponin level
[2016-08-09] MEDS ORDERED: LORazepam 2 MG/ML MDV IVPUSH PRN (23:02)
[2016-08-09] MEDS ORDERED: Zolpidem 5 MG Tab PO PRN (23:04)
[2016-08-10] MEDS ORDERED: Formoterol/Mometasone 200-5 MCG 8.8 GM Inhaler IH SCH (08:15)
[2016-08-10] MEDS ORDERED: Levothyroxine 100 MCG Tab PO SCH (09:00)
[2016-08-10] MEDS ORDERED: Levothyroxine 75 MCG Tab PO SCH (09:00)
[2016-08-10] MEDS ORDERED: Pantoprazole 20 MG Tab, Delayed Release PO SCH (09:00)
[2016-08-10] MEDS: Formoterol/Mometasone 200-5 MCG 8.8 GM Inhaler IH SCH ×2 (09:16→15:26)
[2016-08-10] MEDS: Folic Acid 1 MG Tab PO SCH (09:31)
[2016-08-10] MEDS: predniSONE 10 MG Tab PO SCH (09:31)
[2016-08-10] MEDS: Aspirin 81 MG Tab.EC PO SCH (09:32)
[2016-08-10] MEDS: Cyanocobalamin (Vitamin B12) 1,000 MCG Tab SL SCH (09:32)
[2016-08-10] MEDS: amLODIPine 5 MG Tab PO SCH (09:33)
--- NOTE | 2016-08-10 10:23 | CR ---
Chest 2V HISTORY: Chest pain FINDINGS: The heart and vascular structures are normal in appearance. No infiltrates or effusions ar e demonstrated. The skeletal structures are unremarkable. IMPRESSION: Negative exam.
[2016-08-10] MEDS: Pantoprazole 20 MG Tab, Delayed Release PO SCH (11:10)
--- NOTE | 2016-08-10 11:14 | NM ---
Nuclear medicine cardiac Lexiscan stress test. History: Syncope and chest pain. Technique: The patient was stressed pharmacologically with the administration of Lexiscan. The patie nt received intravenously 10.12 millicuries of technetium 99 Myoview followed by rest imaging and 3 2.0 millicuries followed by stress imaging. Findings: There is a small fixed defect involving the anterior septal portion of the mid myocardium extending to the apex. The finding is consistent with a small infarct. There is mild ajay-infarct is chemia with partial reversibility. There is a normal distribution of the radiopharmaceutical elsewhe re. There is normal wall motion. The cardiac ejection fraction is within normal limits equal to 62%. Impression: 1. Small infarct with mild ajay-infarct ischemia involving the anterior septal portion mid myocardiu m. 2. Normal ejection fraction.
[2016-08-10] MEDS: ADVAIR 250/50 INHALER (PTOM) INH SCH ×2 (11:41→20:59)
--- NOTE | 2016-08-10 15:00 | PCM.PN ---
- General Info Date of Service: 08/10/16 Functional Status: Reports: ambulating - Review of Systems General: Denies: fever, chills Pulmonary: Reports: no symptoms Cardiovascular: Reports: lightheadedness. Denies: chest pain, palpitations, dyspnea on exertion, orthopnea, PND, edema Gastrointestinal: Reports: No symptoms Genitourinary: Reports: no symptoms Systems Review Comment:: This patient is a 60-year-old gentleman who was admitted through the emergency department with episodes of syncope. He's had 3 syncopal episodes over the past week, during these episodes have been standing and did note preceding lightheadedness. Blood pressure has been more difficult to control recently. Evaluation thus far has been unremarkable as to the underlying etiology. Lexiscan Cardiolite study obtained today showed an old infarct with very mild ajay-infarct ischemia. Patient reports that this is consistent with this past history of an infarct approximately 6 years ago. Cardiac monitoring has shown no significant dysrhythmias thus far. - Patient Data Vitals - most recent: Last Vital Signs Temp 99.3 F 08/10/16 14:54 Pulse 87 08/10/16 14:54 Resp 18 08/10/16 14:54 BP 138/80 08/10/16 14:54 Pulse Ox 96 08/10/16 14:54 Orthostatic Blood Pressure [ 130/75 Standing] Orthostatic Blood Pressure [ 143/86 Sitting] Orthostatic Blood Pressure [ 154/92 Supine] Weight - most recent: 239 lb 15.994 oz I&O - last 24 hours: Intake & Output 08/09/16 08/10/16 08/10/16 22:59 06:59 14:59 Intake Total 240 520 Output Total 700 525 Balance -460 -5 Lab Results last 24 hrs: Laboratory Results - last 24 hr 08/09/16 08/09/16 08/10/16 Range/Units 14:56 22:50 05:00 WBC 9.2 (4.5-11.0) K/uL RBC 4.64 (4.30-5.90) M/uL Hgb 13.8 (12.0-15.0) g/dL Hct 43.7 (40.0-54.0) % MCV 94 (80-98) fL MCH 30 (27-31) pg MCHC 32 (32-36) % Plt Count 272 (150-400) K/uL Sodium (140-148) mmol/L Potassium (3.6-5.2) mmol/L Chloride (100-108) mmol/L Carbon Dioxide (21-32) mmol/L Anion Gap (5.0-14.0) mmol/L BUN (7-18) mg/dL Creatinine (0.8-1.3) mg/dL Est Cr Clr Drug Dosing mL/min Estimated GFR (MDRD) (>60) Glucose (74-106) mg/dL Calcium (8.5-10.1) mg/dL Total Bilirubin (0.2-1.0) mg/dL AST (15-37) U/L ALT (12-78) U/L Alkaline Phosphatase (46-116) U/L Troponin I < 0.017 (0.000-0.056) ng/mL Total Protein (6.4-8.2) g/dL Albumin (3.4-5.0) g/dL Globulin (2.3-3.5) g/dL Albumin/Globulin Ratio (1.2-2.2) Urine Color Yellow Urine Appearance Clear Urine pH 8.0 (4.5-8.0) Ur Specific [place] 1.010 (1.008-1.030) Urine Protein Negative (NEGATIVE) mg/dL Urine Glucose (UA) Normal (NEGATIVE) mg/dL Urine Ketones Negative (NEGATIVE) mg/dL Urine Occult Blood Negative (NEGATIVE) Urine Nitrite Negative (NEGAITVE) Urine Bilirubin Negative (NEGATIVE) Urine Urobilinogen Normal (NORMAL) mg/dL Ur Leukocyte Esterase Negative (NEGATIVE) Urine RBC 0-5 (0-5) Urine WBC Not seen (0-5) Ur Epithelial Cells Few Amorphous Sediment Not seen Urine Bacteria Moderate Urine Mucus Not seen 08/10/16 Range/Units 05:00 WBC (4.5-11.0) K/uL RBC (4.30-5.90) M/uL Hgb (12.0-15.0) g/dL Hct (40.0-54.0) % MCV (80-98) fL MCH (27-31) pg MCHC (32-36) % Plt Count (150-400) K/uL Sodium 142 (140-148) mmol/L Potassium 4.5 (3.6-5.2) mmol/L Chloride 106 (100-108) mmol/L Carbon Dioxide 32 (21-32) mmol/L Anion Gap 4.2 L (5.0-14.0) mmol/L BUN 17 D (7-18) mg/dL Creatinine 0.9 (0.8-1.3) mg/dL Est Cr Clr Drug Dosing 83.39 mL/min Estimated GFR (MDRD) > 60 (>60) Glucose 80 (74-106) mg/dL Calcium 8.5 (8.5-10.1) mg/dL Total Bilirubin 1.9 H (0.2-1.0) mg/dL AST 51 H (15-37) U/L ALT 176 H (12-78) U/L Alkaline Phosphatase 53 (46-116) U/L Troponin I (0.000-0.056) ng/mL Total Protein 6.3 L (6.4-8.2) g/dL Albumin 3.2 L (3.4-5.0) g/dL Globulin 3.1 (2.3-3.5) g/dL Albumin/Globulin Ratio 1.0 L (1.2-2.2) Urine Color Urine Appearance Urine pH (4.5-8.0) Ur Specific [place] (1.008-1.030) Urine Protein (NEGATIVE) mg/dL Urine Glucose (UA) (NEGATIVE) mg/dL Urine Ketones (NEGATIVE) mg/dL Urine Occult Blood (NEGATIVE) Urine Nitrite (NEGAITVE) Urine Bilirubin (NEGATIVE) Urine Urobilinogen (NORMAL) mg/dL Ur Leukocyte Esterase (NEGATIVE) Urine RBC (0-5) Urine WBC (0-5) Ur Epithelial Cells Amorphous Sediment Urine Bacteria Urine Mucus Med Orders - Current: Current Medications Acetaminophen (Tylenol) 650 mg PO Q4H PRN PRN Reason: Pain (Mild 1-3)/fever Acetaminophen/Hydrocodone Bitart ([place] 325-5 Mg) 1 tab PO Q4H PRN PRN Reason: Pain Last Admin: 08/09/16 20:23 Dose: 1 tab Amlodipine Besylate (Norvasc) 5 mg PO DAILY [facility] Last Admin: 08/10/16 09:33 Dose: 5 mg Aspirin (Halfprin) 81 mg PO DAILY [facility] Last Admin: 08/10/16 09:32 Dose: 81 mg Citalopram Hydrobromide (Celexa) 40 mg PO BEDTIME [facility] Cyanocobalamin (Vitamin B12) 1,000 mcg SL DAILY [facility] Last Admin: 08/10/16 09:32 Dose: 1,000 mcg Folic Acid (Folic Acid) 1 mg PO DAILY [facility] Last Admin: 08/10/16 09:31 Dose: 1 mg Ibuprofen (Motrin) 600 mg PO Q6H PRN PRN Reason: Pain/Fever Levothyroxine Sodium 100 mcg/ (Levothyroxine Sodium 75 mcg) 175 mcg PO ACBREAKFAST [facility] Last Admin: 08/10/16 11:11 Dose: 175 mcg Lorazepam (Ativan) 1 mg IVPUSH Q2H PRN PRN Reason: Anxiety Ondansetron HCl (Zofran Odt) 4 mg PO Q6H PRN PRN Reason: Nausea able to take PO Pantoprazole Sodium (Pantoprazole) 20 mg PO ACBREAKFAST [facility] Last Admin: 08/10/16 11:10 Dose: 20 mg Advair 250/50 (Inhaler (Ptom)) 0 each INH BIDRT [facility] Last Admin: 08/10/16 11:41 Dose: 1 each Polyethylene Glycol (Miralax) 17 gm PO DAILY PRN PRN Reason: Constipation Prednisone (Prednisone) 10 mg PO WITHBREAKFAST [facility] Last Admin: 08/10/16 09:31 Dose: 10 mg Zolpidem Tartrate (Ambien) 5 mg PO BEDTIME PRN PRN Reason: Insomnia Discontinued Medications Amlodipine Besylate (Norvasc) 5 mg PO ONETIME ONE Stop: 08/09/16 11:59 Last Admin: 08/09/16 12:07 Dose: 5 mg Sodium Chloride (Normal Saline) 100 mls @ 3.5 mls/sec IV ASDIRECTED [facility] Last Admin: 08/09/16 11:47 Dose: 4 mls/sec Iopamidol (Isovue-370 (76%)) 100 ml IV . DIRECTED [facility] Last Admin: 08/09/16 11:46 Dose: 100 ml Ketorolac Tromethamine (Toradol) 30 mg IVPUSH ONETIME ONE Stop: 08/09/16 14:52 Last Admin: 08/09/16 15:52 Dose: 30 mg Mometasone Furoate/Formoterol Fumar (Dulera 200-5 Mcg) 2 puff IH BIDRT [facility] Last Admin: 08/10/16 09:16 Dose: Not Given Morphine Sulfate (Morphine) 2 mg IVPUSH ONETIME STA Stop: 08/09/16 22:40 Last Admin: 08/09/16 23:00 Dose: 2 mg Nitroglycerin (Nitrostat) Confirm Administered Dose 0.4 mg .ROUTE .STK-MED ONE Stop: 08/09/16 22:37 Last Admin: 08/09/16 22:39 Dose: 0.4 mg Nitroglycerin (Nitrostat) 0.4 mg SL Q5M PRN PRN Reason: Chest Pain Stop: 08/09/16 22:51 Pantoprazole Sodium (Pantoprazole) 20 mg PO DAILY [facility] Regadenoson (Lexiscan) 0.4 mg IVPUSH ONETIME ONE Stop: 08/10/16 08:46 Last Admin: 08/10/16 08:48 Dose: 0.4 mg Sodium Chloride (Saline Flush) 10 ml FLUSH ONETIME PRN PRN Reason: per radiology protocol Last Admin: 08/09/16 11:45 Dose: 10 ml - Exam Quality Assessment: DVT prophylaxis General: alert, oriented, cooperative, no acute distress Lungs: Clear to auscultation, Normal respiratory effort, Decreased breath sounds Cardiovascular: regular rate, regular rhythm, no murmurs Abdomen: bowel sounds present, soft, no tenderness, no distension Extremities: no edema Skin: warm, dry, intact - Problem List Review Problem List Initiated/Reviewed/Updated: Yes - My Orders Last 24 Hours: My Active Orders 08/11/16 05:00 COMPREHENSIVE METABOLIC PN,CMP [CHEM] Timed - Plan Plan:: Assessment and plan - Syncope and collapse - exact etiology not entirely clear. Potential culprits could include dysrhythmia versus poor perfusion with accelerated hypertension versus occult coronary artery disease versus other. MRI of his brain was normal. He did wear a Holter monitor but did not have any events during that 48 hour period. No strong evidence for infection at this time. Vasovagal is less likely but could be considered. Thyroid testing is normal. Examination is benign.he did experience one episode of chest pain last night associated with some lightheadedness but had no significant cardiac dysrhythmias. Lexiscan Cardiolite study obtained today shows only old infarct with a small amount of ajay-infarct ischemia. -Cardiac monitoring -Pulse oximetry overnight -Amlodipine for his blood pressure elevation Abnormal hepatic panel enzymes - CT scan earlier in the week did reveal fatty liver. Bilirubin is elevated more than usual and AST and ALT have been slowly rising. Statin medication is currently on hold with concern that this could be contributing to his clinical condition. No acute pathology noted anatomically. -I agree that holding the statin is a good idea -Repeat labs in the morning -consider ultrasound if level is rising Accelerated hypertension - significant elevation of both systolic and diastolic blood pressures. He is off his carvedilol because of concern that may be contributing to his syncope. Seems to be responding well to a single dose of amlodipine given in the emergency room. -Amlodipine 5 mg daily, titrate as needed Coronary artery disease - History of 99% stenosis of the LAD status post placement of 2 stents approximately 5 years ago. Currently asymptomatic as far as I can tell based on history. Beta nadine currently on hold with concern that may be contributing to his syncope. Baseline heart rate is in the 50s.Lexiscan Cardiolite study obtained today shows evidence of an old infarct but no new significant areas of ischemia Status post gastric bypass for morbid obesity - significant weight loss and clinically seems to be doing quite well. -Continue vitamin supplements Maintenance issues - - DVT prophylaxis - Mechanical - GI prophylaxis - PPI - Nutrition - Regular diet - Mays catheter - Not indicated CODE STATUS - Full code Admission justification - Patient will be referred observation status for close monitoring, cardiac monitoring additional workup Disposition - Anticipate discharge to home after the hospital stay Primary care physician - Meche Glynn NP
[2016-08-10] MEDS ORDERED: Citalopram 20 MG Tab PO SCH (21:00)
[2016-08-10] MEDS: Acetaminophen/HYDROcodone 325-5 MG Tab PO PRN (21:21)
[2016-08-11] MEDS: Pantoprazole 20 MG Tab, Delayed Release PO SCH (07:15)
[2016-08-11] MEDS: ADVAIR 250/50 INHALER (PTOM) INH SCH (07:31)
[2016-08-11] MEDS: Folic Acid 1 MG Tab PO SCH (08:10)
[2016-08-11] MEDS: Aspirin 81 MG Tab.EC PO SCH (08:10)
[2016-08-11] MEDS: amLODIPine 5 MG Tab PO SCH (08:10)
[2016-08-11] MEDS: predniSONE 10 MG Tab PO SCH (08:10)
[2016-08-11] MEDS: Cyanocobalamin (Vitamin B12) 1,000 MCG Tab SL SCH (08:11)
[2016-08-11] MEDS: Acetaminophen/HYDROcodone 325-5 MG Tab PO PRN (08:19)
[2016-08-11 10:35] VITALS: BP 127/75
--- NOTE | 2016-08-11 14:49 | PCM.DCSUM1 ---
Discharge Summary - Hospital Course Brief History: This patient is a 60-year-old gentleman who was admitted for further evaluation and management of syncopal episodes. - Discharge Data Discharge Date: 08/11/16 Discharge Disposition: Home, Self-Care 01 Condition: Fair - Discharge Diagnosis/Problem(s) (1) Syncope SNOMED Code(s): 435740022 ICD Code: R55 - SYNCOPE AND COLLAPSE Status: Acute Current Visit: Yes Qualifiers: Syncope type: unspecified Qualified Code(s): R55 - Syncope and collapse (2) Accelerated hypertension SNOMED Code(s): 81199781 ICD Code: I10 - ESSENTIAL (PRIMARY) HYPERTENSION Status: Acute Current Visit: Yes (3) Intermittent tremor SNOMED Code(s): 28528198 ICD Code: R25.1 - TREMOR, UNSPECIFIED Status: Acute Current Visit: No - Patient Summary/Data Hospital Course: This gentleman has had recurrent episodes of syncope over the past week, there have been a total of 3 episodes they have all occurred when he has been upright and usually active. There've been no significant symptoms of chest pain occurring with the syncopal episodes and is noted no rapid or slow heart rates. Episodes have been associated with some tremoring after each of the syncopal events. Evaluation thus far has included a Holter monitor, echocardiogram, CT scan and MRI of the head, all of which have shown no significant abnormalities to explain his recent symptoms. During this period time has had increase in his blood pressure and started on antihypertensive therapy which was felt to be contributing to the events. ROSE inhibitor and his beta nadine have been discontinued, on this presentation to the emergency department he was found to have elevated blood pressure and was given amlodipine with good results. Because of recurrent episodes he was admitted to the hospital for further evaluation and cardiac monitoring. Orthostatic vital signs did show a drop, cardiac monitoring showed no significant dysrhythmias during his hospital stay. Lexiscan Cardiolite study was obtained on the day prior to discharge and showed an area of old infarct with a small area of ajay-infarct ischemia. He will be discharged to home, there is already a followup appointment with cardiology scheduled for tomorrow August 12. He is instructed not to drive until he's been syncope very for a period of 3 months or cleared by a physician to drive sooner than that. Activity will otherwise be as tolerated and he will resume his usual diet. - Patient Instructions Diet: Usual Diet as Tolerated Activity: As Tolerated Driving: Do Not Drive (Until you have gone 3 months without a syncopal episode or cleared by a physician to drive) - Discharge Plan Prescriptions/Med Rec: amLODIPine [Norvasc] 5 mg PO DAILY #30 tablet Home Medications: Home Meds Citalopram [Citalopram HBr] 40 mg PO BEDTIME 09/04/14 [History] Levothyroxine 175 mcg PO QAM 12/29/14 [History] Fluticasone/Salmeterol [Advair 250-50] 1 puff INH BID 05/27/15 [History] Aspirin 81 mg PO QAM 05/29/15 [History] Hydrocodone/Acetaminophen [Hydrocodon-Acetaminophen 5-325] 1 tab PO ASDIRECTED PRN 12/20/15 [History] Pantoprazole 20 mg PO DAILY 04/13/16 [History] Calcium Carb/Vitamin D3/Vit K1 [Calcium + Vit D & K Chew] 1 tab PO DAILY [History] Cyanocobalamin (Vitamin B-12) [Vitamin B-12] 1,000 mcg SL DAILY 05/28/16 [ History] Folic Acid 1 mg PO DAILY 05/28/16 [History] Cyanocobalamin (Vitamin B12) [Vitamin B12] 1,000 mcg IJ Q14D 08/05/16 [History] Pediatric Multivit Comb No.42 [Flintstones] 1 each PO DAILY 08/05/16 [History] Cholecalciferol (Vitamin D3) [Vitamin D3] 5,000 unit PO DAILY 08/08/16 [History] predniSONE [Prednisone] 10 mg PO DAILY 08/09/16 [History] amLODIPine [Norvasc] 5 mg PO DAILY #30 tablet 08/11/16 [Rx] Referrals: Meche Glynn [employer] [Primary Care Provider] - - Patient Data Vitals - Most Recent: Last Vital Signs Temp 99.0 F 08/11/16 10:33 Pulse 79 08/11/16 10:33 Resp 16 08/11/16 10:33 BP 127/75 08/11/16 10:33 Pulse Ox 96 08/11/16 10:33 Orthostatic Blood Pressure [ 152/79 Standing] Orthostatic Blood Pressure [ 127/82 Sitting] Orthostatic Blood Pressure [ 162/93 Supine] Weight - Most Recent: 239 lb 15.994 oz I&O - Last 24 hours: Intake & Output 08/10/16 08/11/16 08/11/16 22:59 06:59 14:59 Intake Total 547 427 5810 Output Total 4512 567 5052 Balance -230 -325 5 Lab Results - Last 24 hrs: Laboratory Results - last 24 hr 08/11/16 Range/Units 05:00 Sodium 141 (140-148) mmol/L Potassium 3.7 (3.6-5.2) mmol/L Chloride 106 (100-108) mmol/L Carbon Dioxide 28 (21-32) mmol/L Anion Gap 6.6 (5.0-14.0) mmol/L BUN 15 (7-18) mg/dL Creatinine 0.8 (0.8-1.3) mg/dL Est Cr Clr Drug Dosing 94.16 mL/min Estimated GFR (MDRD) > 60 (>60) Glucose 85 (74-106) mg/dL Calcium 8.6 (8.5-10.1) mg/dL Total Bilirubin 1.6 H (0.2-1.0) mg/dL AST 28 (15-37) U/L ALT 131 H (12-78) U/L Alkaline Phosphatase 47 (46-116) U/L Total Protein 6.6 (6.4-8.2) g/dL Albumin 3.3 L (3.4-5.0) g/dL Globulin 3.3 (2.3-3.5) g/dL Albumin/Globulin Ratio 1.0 L (1.2-2.2) Med Orders - Current: Current Medications Acetaminophen (Tylenol) 650 mg PO Q4H PRN PRN Reason: Pain (Mild 1-3)/fever Acetaminophen/Hydrocodone Bitart ([place] 325-5 Mg) 1 tab PO Q4H PRN PRN Reason: Pain Last Admin: 08/11/16 08:19 Dose: 1 tab Amlodipine Besylate (Norvasc) 5 mg PO DAILY [facility] Last Admin: 08/11/16 08:10 Dose: 5 mg Aspirin (Halfprin) 81 mg PO DAILY [facility] Last Admin: 08/11/16 08:10 Dose: 81 mg Citalopram Hydrobromide (Celexa) 40 mg PO BEDTIME [facility] Last Admin: 08/10/16 21:00 Dose: 40 mg Cyanocobalamin (Vitamin B12) 1,000 mcg SL DAILY [facility] Last Admin: 08/11/16 08:11 Dose: 1,000 mcg Folic Acid (Folic Acid) 1 mg PO DAILY [facility] Last Admin: 08/11/16 08:10 Dose: 1 mg Ibuprofen (Motrin) 600 mg PO Q6H PRN PRN Reason: Pain/Fever Levothyroxine Sodium 100 mcg/ (Levothyroxine Sodium 75 mcg) 175 mcg PO ACBREAKFAST [facility] Last Admin: 08/11/16 07:15 Dose: 175 mcg Lorazepam (Ativan) 1 mg IVPUSH Q2H PRN PRN Reason: Anxiety Ondansetron HCl (Zofran Odt) 4 mg PO Q6H PRN PRN Reason: Nausea able to take PO Pantoprazole Sodium (Pantoprazole) 20 mg PO ACBREAKFAST [facility] Last Admin: 08/11/16 07:15 Dose: 20 mg Advair 250/50 (Inhaler (Ptom)) 0 each INH BIDRT [facility] Last Admin: 08/11/16 07:31 Dose: 1 each Polyethylene Glycol (Miralax) 17 gm PO DAILY PRN PRN Reason: Constipation Prednisone (Prednisone) 10 mg PO WITHBREAKFAST [facility] Last Admin: 08/11/16 08:10 Dose: 10 mg Zolpidem Tartrate (Ambien) 5 mg PO BEDTIME PRN PRN Reason: Insomnia Discontinued Medications Amlodipine Besylate (Norvasc) 5 mg PO ONETIME ONE Stop: 08/09/16 11:59 Last Admin: 08/09/16 12:07 Dose: 5 mg Sodium Chloride (Normal Saline) 100 mls @ 3.5 mls/sec IV ASDIRECTED [facility] Last Admin: 08/09/16 11:47 Dose: 4 mls/sec Iopamidol (Isovue-370 (76%)) 100 ml IV . DIRECTED [facility] Last Admin: 08/09/16 11:46 Dose: 100 ml Ketorolac Tromethamine (Toradol) 30 mg IVPUSH ONETIME ONE Stop: 08/09/16 14:52 Last Admin: 08/09/16 15:52 Dose: 30 mg Mometasone Furoate/Formoterol Fumar (Dulera 200-5 Mcg) 2 puff IH BIDRT [facility] Last Admin: 08/10/16 15:26 Dose: Not Given Morphine Sulfate (Morphine) 2 mg IVPUSH ONETIME STA Stop: 08/09/16 22:40 Last Admin: 08/09/16 23:00 Dose: 2 mg Nitroglycerin (Nitrostat) Confirm Administered Dose 0.4 mg .ROUTE .STK-MED ONE Stop: 08/09/16 22:37 Last Admin: 08/09/16 22:39 Dose: 0.4 mg Nitroglycerin (Nitrostat) 0.4 mg SL Q5M PRN PRN Reason: Chest Pain Stop: 08/09/16 22:51 Pantoprazole Sodium (Pantoprazole) 20 mg PO DAILY [facility] Regadenoson (Lexiscan) 0.4 mg IVPUSH ONETIME ONE Stop: 08/10/16 08:46 Last Admin: 08/10/16 08:48 Dose: 0.4 mg Sodium Chloride (Saline Flush) 10 ml FLUSH ONETIME PRN PRN Reason: per radiology protocol Last Admin: 08/09/16 11:45 Dose: 10 ml *Q Meaningful Use (DIS) - VTE *Q VTE Criteria *Q: - Stroke *Q Stroke Criteria *Q: - AMI *Q AMI Criteria *Q:
--- NOTE | 2016-08-14 01:00 | STRESS ---
DATE OF SERVICE: 08/13/2016 TITLE OF REPORT: Lexiscan Cardiolite Study SUMMARY: Mr. Gonzalez was infused with usual dose of Lexiscan and then received the Cardiolite injection. He did experience symptoms of mild shortness of breath, headache, and mild chest tightness with Lexiscan infusion. Symptoms resolved spontaneously and did not require reversal with intravenous aminophylline. Resting ECG, sinus bradycardia, rate of 56, normal axis and intervals. Otherwise, normal appearing EKG. No significant changes were seen on the post hyperventilation or standing ECGs. There were no significant ST- segment changes or T-wave abnormalities noted with Lexiscan infusion or during the post infusion. He had symptoms as reported above. There were occasional premature ventricular and premature atrial complexes noted during the monitoring. IMPRESSION: Unremarkable Lexiscan portion of the Lexiscan Cardiolite study. Kurt Gómez MD /[id number]
== END 2016-08-11 15:55 | disposition home or self-care (01) ==
LOC: JP.ED 09:43 → JP.2SS 14:52
PROVIDERS: ADMIT Internal Medicine; ATTEND Hospitalist
DX: R55 Syncope and collapse (principal); I10 Essential (primary) hypertension; R25.1 Tremor, unspecified; Z79.82 Long term (current) use of aspirin; Z79.52 Long term (current) use of systemic steroids; I25.10 Atherosclerotic heart disease of native coronary artery without angina pectoris; Z95.5 Presence of coronary angioplasty implant and graft; I50.9 Heart failure, unspecified; E78.00 Pure hypercholesterolemia, unspecified; I25.2 Old myocardial infarction; J44.9 Chronic obstructive pulmonary disease, unspecified; G47.30 Sleep apnea, unspecified; M19.90 Unspecified osteoarthritis, unspecified site; F32.9 Major depressive disorder, single episode, unspecified; E66.9 Obesity, unspecified; E53.8 Deficiency of other specified B group vitamins; Z87.891 Personal history of nicotine dependence; K76.0 Fatty (change of) liver, not elsewhere classified; Z91.038 Other insect allergy status; M54.2 Cervicalgia; M25.519 Pain in unspecified shoulder; I11.0 Hypertensive heart disease with heart failure; Z91.040 Latex allergy status; Z79.899 Other long term (current) drug therapy; Z98.890 Other specified postprocedural states
CPT/HCPCS: 36415; 70450; 71020; 71275; 78452; 80053; 81001; 83735; 84439; 84484; 85025; 85027; 85379; 93005; 94640; 94762; 96374; 96375; 99217; 99225; 99285; A9270; A9500; G0378; J1885; J2270; J2785; J7030; J7050; Q9967; 93010; 93017

== ENCOUNTER 2016-08-16 03:14 | Emergency (ER) | payer MEDICAID ==
[2016-08-16 02:26] VITALS: BP 132/77
--- NOTE | 2016-08-16 04:20 | EDM.PDOC ---
ED HPI GENERAL MEDICAL PROBLEM - General Chief Complaint: General Stated Complaint: MED [facility]IA [facility] Time Seen by Provider: 08/16/16 03:44 Source of Information: Reports: Patient History Limitations: Reports: No limitations - History of Present Illness INITIAL COMMENTS - FREE TEXT/NARRATIVE: This patient arrived by EMS with the complaint of a tremor. He's also having some shooting pain in the left shoulder hip and knee. The tremor has been going on for about one and a half months. It comes and goes and it is a coarse tremor. He's been having these pains in his joints for a long time. He said it especially hurts when he moves his left shoulder. He is planning to see the orthopedic surgeon very soon. He was hospitalized in the past week for some syncopal episodes. Prior to that there was an episode of dizziness where the patient was found on the floor. His recent workup has included a head CT brain MRI stress test. He is scheduled to see a continuous improvement intern sometime in the near future. He has not seen a neurologist. He sees Dr. Villarreal but has not talked with him about these problems. His wonders if maybe he has Parkinson's disease. It's unclear why he came in tonight since the tremor is been going on for over a month but it may be that the shoulder pain which is bothering him more. left shoulder Pain Score (Numeric/FACES): 10 left knee Pain Score (Numeric/FACES): 7 left hip Pain Score (Numeric/FACES): 5 - Related Data Allergies Allergy/AdvReac Type Severity Reaction Status Date / Time Latex, Natural Rubber Allergy Cannot Verified 08/16/16 03:22 Remember Home Meds: Home Meds Citalopram [Citalopram HBr] 40 mg PO BEDTIME 09/04/14 [History] Levothyroxine 175 mcg PO QAM 12/29/14 [History] Fluticasone/Salmeterol [Advair 250-50] 1 puff INH BID 05/27/15 [History] Aspirin 81 mg PO QAM 05/29/15 [History] Hydrocodone/Acetaminophen [Hydrocodon-Acetaminophen 5-325] 1 tab PO ASDIRECTED PRN 12/20/15 [History] Pantoprazole 20 mg PO DAILY 04/13/16 [History] Calcium Carb/Vitamin D3/Vit K1 [Calcium + Vit D & K Chew] 1 tab PO DAILY [History] Cyanocobalamin (Vitamin B-12) [Vitamin B-12] 1,000 mcg SL DAILY 05/28/16 [ History] Folic Acid 1 mg PO DAILY 05/28/16 [History] Cyanocobalamin (Vitamin B12) [Vitamin B12] 1,000 mcg IJ Q14D 08/05/16 [History] Pediatric Multivit Comb No.42 [Flintstones] 1 each PO DAILY 08/05/16 [History] Cholecalciferol (Vitamin D3) [Vitamin D3] 5,000 unit PO DAILY 08/08/16 [History] predniSONE [Prednisone] 10 mg PO DAILY 08/09/16 [History] amLODIPine [Norvasc] 5 mg PO DAILY #30 tablet 08/11/16 [Rx] Past Medical History HEENT History: Reports: Allergic rhinitis, Cataract, Hard of hearing, Impaired vision, Other (see below) Other HEENT History: deaf right ear Cardiovascular History: Reports: Angina, CAD, Heart Failure, High cholesterol, Hypertension, [place], SOB on exertion, Stents, Other (see below) Other Cardiovascular History: recent chest pain Respiratory History: Reports: COPD, Pneumonia, recurrent, Sleep apnea, SOB, Other (see below) Other Respiratory History: C pap at night. Home O2 at night. Gastrointestinal History: Reports: Hemorrhoids, Other (see below) Other Gastrointestinal History: girth 63". 88 # wt loss since may. painful zyphoid process. 06/01/16 fluid filled mass removed from zyphoid process Musculoskeletal History: Reports: Arthritis, Back pain, chronic, Fracture, Osteoarthritis Other Musculoskeletal History: T1-C4 neck fusion, cortisone shots in knees/ shoulders Neurological History: Reports: Concussion Psychiatric History: Reports: Depression Endocrine/Metabolic History: Reports: Hypothyroidism, Obesity/BMI 30+ Hematologic History: Reports: B12 deficiency - Infectious Disease History Infectious Disease History: Reports: Chicken pox, Mumps - Past Surgical History Head Surgeries/Procedures: Reports: None HEENT Surgical History: Reports: Cataract surgery, Oral surgery, Tonsillectomy Cardiovascular Surgical History: Reports: Coronary artery stent, Other (see below) Other Cardiovascular Surgeries/Procedures: angiogram Respiratory Surgical History: Reports: None GI Surgical History: Reports: Bariatric procedure, Cholecystectomy, Colonoscopy , EGD, Hernia, abdominal, Polypectomy Male Surgical History: Reports: None Endocrine Surgical History: Reports: None Neurological Surgical History: Reports: C-Spine, Spinal fusion Musculoskeletal Surgical History: Reports: Arthroscopic knee Social & Family History - Family History Cardiac: Reports: CAD - Tobacco Use Smoking Status *Q: Former Smoker Years of Tobacco use: 40 Packs/Tins Daily: 1 Used Tobacco, but Quit: Yes Month Tobacco Last Used: november Second Hand Smoke Exposure: No - Caffeine Use Caffeine Use: Reports: Tea - Alcohol Use Days Per Week of Alcohol Use: 0 - Recreational Drug Use Recreational Drug Use: No - Living Situation & Occupation Living situation: Reports: , with spouse Occupation: retired ED ROS GENERAL - Review of Systems Review Of Systems: See Below Constitutional: Reports: no symptoms HEENT: Reports: No symptoms Respiratory: Reports: no symptoms Cardiovascular: Reports: No symptoms Endocrine: Reports: no symptoms GI/Abdominal: Reports: No symptoms : Reports: no symptoms Musculoskeletal: Reports: other (Left shoulder hip and knee pain) Skin: Reports: no symptoms Neurological: Reports: tremors Psychiatric: Reports: No symptoms Hematologic/Lymphatic: Reports: no symptoms Immunologic: Reports: no symptoms ED EXAM, GENERAL - Physical Exam Exam: See Below Exam Limited By: No limitations General Appearance: alert, obese, other (C. neuro exam) Eye Exam: bilateral eye: normal inspection Throat/Mouth: Normal inspection Head: atraumatic Neck: normal inspection Respiratory/Chest: lungs clear Cardiovascular: regular rate, rhythm GI/Abdominal: non tender Extremities: normal inspection Neurological: alert, oriented, CN II-XII intact, normal cognition, other (He generally seems to have normal strength in the extremities however frequently during testing he develops a tremor I was unable to check reflexes for this reason. He has a coarse tremor approximately 4 Hz which occurs at rest and with movement. At one point he was holding his arm up and the entire arm was trembling and when I asked him to squeeze my fingers the tremor immediately went away. I could not reproduce this. ) Course - Vital Signs Last Recorded V/S: Last Vital Signs Temp 36.6 C 08/16/16 03:25 Pulse 88 08/16/16 03:25 Resp 21 H 08/16/16 03:25 BP 132/77 08/16/16 03:25 Pulse Ox 98 08/16/16 03:25 - Re-Assessments/Exams Free Text/Narrative Re-Assessment/Exam: 08/16/16 06:37 The patient was observed sleeping and there is no evidence of any tremor. I told the family that he will need an MRI of the head and a neurological workup. I said that we will schedule an MRI and then he would follow up with his Dr. The patient and family said that he had already had a head CT. It wasn 't until after the patient had left that we discovered that a brain MRI had been done on August 04. That was normal. The patient was then called and informed that another MRI would not be done but he still needs to followup with his Dr. since a neurology referral can't be done through the ER The family asked if it was safe for him to go home and I felt it is safe says she's had a very large workup just within the past week. Departure - Departure Time of Disposition: :17 Disposition: Home, Self-Care 01 Condition: fair Clinical Impression: Tremor of unknown origin Instructions: Tremor Referrals: Yong Robledo MD [Primary Care Provider] - Forms: ED Department Discharge Additional Instructions: You will need a full evaluation by a neurologist. Your Dr. will have to arrange the referral. An MRI of the brain has been ordered for sometime early next week and you will be contacted with the date and time. Use the Percocet (5/325 #20) one or 2 tablets every 4 hours as needed for pain. Use this instead of the hydrocodone. Continue all your other medications
== END 2016-08-16 05:25 | disposition home or self-care (01) ==
LOC: JP.ED 03:14
DX: R25.1 Tremor, unspecified (principal); E78.00 Pure hypercholesterolemia, unspecified; I50.9 Heart failure, unspecified; I25.10 Atherosclerotic heart disease of native coronary artery without angina pectoris; I25.2 Old myocardial infarction; J44.9 Chronic obstructive pulmonary disease, unspecified; E03.9 Hypothyroidism, unspecified; I11.0 Hypertensive heart disease with heart failure; Z87.891 Personal history of nicotine dependence; Z79.899 Other long term (current) drug therapy; Z91.040 Latex allergy status
CPT/HCPCS: 99283

== ENCOUNTER 2017-01-13 21:20 | Emergency (ER) | payer MEDICAID ==
[2017-01-13] MEDS ORDERED: Naloxone 0.4 MG/ML SDV IVPUSH PRN ×3 (21:25→21:47)
--- NOTE | 2017-01-13 21:31 | EDM.PDOC ---
ED HPI GENERAL MEDICAL PROBLEM - General Chief Complaint: General Stated Complaint: MEDICAL [facility]IA [facility] Time Seen by Provider: 01/13/17 21:20 Source of Information: Reports: EMS, Old Records History Limitations: Reports: No Limitations - History of Present Illness INITIAL COMMENTS - FREE TEXT/NARRATIVE: 61 yo male with recent reconstructive surgery of the L shoulder had abrupt onset of decreased responsiveness along with his at their home. He is on a narcotic pain med for his L shoulder pain. EMT's who transported thought there was an odd odor in the house. was outside when found unresponsive. No apparent ETOH involved. Would arouse en route with vigorous stimuli. 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: Other (see below) (none) - Related Data Allergies Allergy/AdvReac Type Severity Reaction Status Date / Time Latex, Natural Rubber Allergy Cannot Verified 08/16/16 03:22 Remember Home Meds: Home Meds Citalopram [Citalopram HBr] 40 mg PO BEDTIME 09/04/14 [History] Levothyroxine 175 mcg PO QAM 12/29/14 [History] Fluticasone/Salmeterol [Advair 250-50] 1 puff INH BID 05/27/15 [History] Aspirin 81 mg PO QAM 05/29/15 [History] Pantoprazole 20 mg PO DAILY 04/13/16 [History] Calcium Carb/Vitamin D3/Vit K1 [Calcium + Vit D & K Chew] 1 tab PO DAILY [History] Cyanocobalamin (Vitamin B-12) [Vitamin B-12] 1,000 mcg SL DAILY 05/28/16 [ History] Folic Acid 1 mg PO DAILY 05/28/16 [History] Cyanocobalamin (Vitamin B12) [Vitamin B12] 1,000 mcg IJ Q14D 08/05/16 [History] Pediatric Multivit Comb No.42 [Flintstones] 1 each PO DAILY 08/05/16 [History] Cholecalciferol (Vitamin D3) [Vitamin D3] 5,000 unit PO DAILY 08/08/16 [History] predniSONE [Prednisone] 10 mg PO DAILY 08/09/16 [History] amLODIPine [Norvasc] 5 mg PO DAILY #30 tablet 08/11/16 [Rx] Baclofen 1 tab PO BID PRN 10/22/16 [History] Cyclobenzaprine [Flexeril] 10 mg PO TID PRN 10/22/16 [History] oxyCODONE 1 tab PO Q4H PRN 10/22/16 [History] Past Medical History HEENT History: Reports: Allergic Rhinitis, Cataract, Hard of Hearing, Impaired Vision, Other (See Below) Other HEENT History: deaf right ear Cardiovascular History: Reports: Angina, CAD, Heart Failure, High Cholesterol, Hypertension, [place], SOB on Exertion, Stents, Other (See Below) Other Cardiovascular History: recent chest pain Respiratory History: Reports: COPD, Pneumonia, Recurrent, Sleep Apnea, SOB, Other (See Below) Other Respiratory History: C pap at night. Home O2 at night. Gastrointestinal History: Reports: Hemorrhoids, Other (See Below) Other Gastrointestinal History: girth 63". 88 # wt loss since may. painful zyphoid process. 06/01/16 fluid filled mass removed from zyphoid process Musculoskeletal History: Reports: Arthritis, Back Pain, Chronic, Fracture, Osteoarthritis Other Musculoskeletal History: T1-C4 neck fusion, cortisone shots in knees/ shoulders Neurological History: Reports: Concussion Other Neuro History: pt has passed out at home 3 times in the last month, he has an apt with neurology 09/17/16 Psychiatric History: Reports: Depression Endocrine/Metabolic History: Reports: Hypothyroidism, Obesity/BMI 30+ Hematologic History: Reports: B12 Deficiency - Infectious Disease History Infectious Disease History: Reports: Chicken Pox, Mumps - Past Surgical History Head Surgeries/Procedures: Reports: None HEENT Surgical History: Reports: Cataract Surgery, Oral Surgery, Tonsillectomy Cardiovascular Surgical History: Reports: Coronary Artery Stent, Other (See Below) GI Surgical History: Reports: Bariatric Procedure, Cholecystectomy, Colonoscopy , EGD, Hernia, Abdominal, Polypectomy Male Surgical History: Reports: None Endocrine Surgical History: Reports: None Neurological Surgical History: Reports: C-Spine, Spinal Fusion Musculoskeletal Surgical History: Reports: Arthroscopic Knee Social & Family History - Family History Cardiac: Reports: CAD - Tobacco Use Smoking Status *Q: Former Smoker Years of Tobacco use: 40 Packs/Tins Daily: 1 Used Tobacco, but Quit: Yes Month Tobacco Last Used: november Second Hand Smoke Exposure: No - Caffeine Use Caffeine Use: Reports: Tea - Alcohol Use Days Per Week of Alcohol Use: 0 - Recreational Drug Use Recreational Drug Use: No - Living Situation & Occupation Living situation: Reports: , with Spouse Occupation: Retired ED ROS GENERAL - Review of Systems Review Of Systems: Unable To Obtain ED EXAM, GENERAL - Physical Exam Exam: See Below Exam Limited By: No Limitations General Appearance: Alert, WD/WN, Lethargic, Obese Eye Exam: Bilateral Eye: PERRL (pupils somewhat constricted.) Ears: Normal External Exam, Normal Canal Ear Exam: Bilateral Ear: Auricle Normal, Canal Normal Nose: Normal Inspection, Normal Mucosa, No Blood Throat/Mouth: Normal Inspection, Normal Lips, Normal Oropharynx, Normal Voice, No Airway Compromise Head: Atraumatic, Normocephalic Neck: Normal Inspection, Supple Respiratory/Chest: No Respiratory Distress, Lungs Clear, Normal Breath Sounds Cardiovascular: Regular Rate, Rhythm GI/Abdominal: Normal Bowel Sounds, Soft, Non-Tender Extremities: Other (L shoulder wrapped after recent surgery.) Neurological: CN II-XII Intact, No Motor/Sensory Deficits, Slow to Respond Psychiatric: Normal Affect, Normal Mood Skin Exam: Warm, Dry, Intact, Normal Color, No Rash Lymphatic: No Adenopathy Course - Vital Signs Text/Narrative:: Narcan 0.4 mg IV and began to wake up. Woke up more fully later in the ER after his ? Ambien wore off. Son to take home. Last Recorded V/S: Last Vital Signs Temp 37.5 C 01/13/17 22:12 Pulse 85 01/13/17 22:12 Resp 18 01/13/17 21:28 BP 142/94 H 01/13/17 22:12 Pulse Ox 99 01/13/17 22:12 - Orders/Labs/Meds Orders: Active Orders 24 hr Category Date Time Status UA W/MICROSCOPIC [URIN] Stat Lab 01/13/17 22:11 Uncollected Labs: Laboratory Tests 01/13/17 01/13/17 01/13/17 Range/Units 21:24 21:25 21:28 WBC (4.5-11.0) K/uL RBC (4.30-5.90) M/uL Hgb (12.0-15.0) g/dL Hct (40.0-54.0) % MCV (80-98) fL MCH (27-31) pg MCHC (32-36) % Plt Count (150-400) K/uL ABG Carboxyhemoglobin 1.4 (0.0-1.6) % Sodium 143 (140-148) mmol/L Potassium 3.8 (3.6-5.2) mmol/L Chloride 105 (100-108) mmol/L Carbon Dioxide 28 (21-32) mmol/L Anion Gap 9.7 (5.0-14.0) mmol/L BUN 20 H (7-18) mg/dL Creatinine 1.3 D (0.8-1.3) mg/dL Est Cr Clr Drug Dosing 57.21 mL/min Estimated GFR (MDRD) 56 L (>60) Glucose 101 (74-106) mg/dL Calcium 8.7 (8.5-10.1) mg/dL Ethyl Alcohol < 3 mg/dL 01/13/17 Range/Units 21:28 WBC 12.5 H (4.5-11.0) K/uL RBC 4.59 (4.30-5.90) M/uL Hgb 13.8 (12.0-15.0) g/dL Hct 43.3 (40.0-54.0) % MCV 94 (80-98) fL MCH 30 (27-31) pg MCHC 32 (32-36) % Plt Count 402 H (150-400) K/uL ABG Carboxyhemoglobin (0.0-1.6) % Sodium (140-148) mmol/L Potassium (3.6-5.2) mmol/L Chloride (100-108) mmol/L Carbon Dioxide (21-32) mmol/L Anion Gap (5.0-14.0) mmol/L BUN (7-18) mg/dL Creatinine (0.8-1.3) mg/dL Est Cr Clr Drug Dosing mL/min Estimated GFR (MDRD) (>60) Glucose (74-106) mg/dL Calcium (8.5-10.1) mg/dL Ethyl Alcohol mg/dL Meds: Medications Discontinued Medications Generic Name Dose Route Start Last Admin Trade Name Freq PRN Reason Stop Dose Admin Naloxone HCl 0.3 mg 01/13/17 21:25 Narcan IVPUSH 01/13/17 21:26 ONETIME PRN Sedation Naloxone HCl 0.1 mg 01/13/17 21:40 Narcan IVPUSH 01/13/17 21:41 ONETIME PRN Sedation Naloxone HCl 0.4 mg 01/13/17 21:47 01/13/17 21:49 Narcan IVPUSH 01/13/17 21:48 0.4 mg ONETIME PRN Administration Other Departure - Departure Time of Disposition: 00:45 Disposition: Home, Self-Care 01 Condition: Fair Clinical Impression: Polypharmacy, Sedated due to multiple medications - Discharge Information Referrals: PCP,None [Primary Care Provider] - - My Orders Last 24 Hours: My Active Orders 01/13/17 22:11 UA W/MICROSCOPIC [URIN] Stat - Assessment/Plan Last 24 Hours: My Active Orders 01/13/17 22:11 UA W/MICROSCOPIC [URIN] Stat
[2017-01-13 22:13] VITALS: BP 142/94
== END 2017-01-14 01:07 | disposition home or self-care (01) ==
LOC: JP.ED 21:20
DX: F13.90 Sedative, hypnotic, or anxiolytic use, unspecified, uncomplicated (principal); I25.119 Atherosclerotic heart disease of native coronary artery with unspecified angina pectoris; I11.0 Hypertensive heart disease with heart failure; I50.9 Heart failure, unspecified; E78.00 Pure hypercholesterolemia, unspecified; I25.2 Old myocardial infarction; J44.9 Chronic obstructive pulmonary disease, unspecified; M19.90 Unspecified osteoarthritis, unspecified site; F32.9 Major depressive disorder, single episode, unspecified; E03.9 Hypothyroidism, unspecified; E66.9 Obesity, unspecified; Z68.36 Body mass index [BMI] 36.0-36.9, adult; Z91.040 Latex allergy status; Z79.899 Other long term (current) drug therapy; Z98.49 Cataract extraction status, unspecified eye; Z95.5 Presence of coronary angioplasty implant and graft; Z98.84 Bariatric surgery status; Z90.49 Acquired absence of other specified parts of digestive tract; Z98.1 Arthrodesis status; Z98.890 Other specified postprocedural states; Z87.891 Personal history of nicotine dependence
CPT/HCPCS: 36415; 80048; 82375; 85027; 96374; 99284; G0480; J2310

== ENCOUNTER 2017-07-10 19:56 | Emergency (ER) | payer MEDICAID ==
[2017-07-10 20:19] VITALS: BP 145/120
--- NOTE | 2017-07-10 20:38 | EDM.PDOC ---
ED HPI GENERAL MEDICAL PROBLEM - General Chief Complaint: Upper Extremity Injury/Pain Stated Complaint: FELL HURT WRIST Time Seen by Provider: 07/10/17 20:20 Source of Information: Reports: Patient, Family History Limitations: Reports: No Limitations - History of Present Illness INITIAL COMMENTS - FREE TEXT/NARRATIVE: 61-year-old male with left wrist pain after falling 3/2 hours ago landing on his left wrist with some hyperextension. No significant swelling or deformity. No other injury. Onset: Today Duration: Hour(s): (3.5 hours ago) Location: Reports: Upper Extremity, Left Severity: Mild Associated Symptoms: Reports: No Other Symptoms Left Wrist Pain Score (Numeric/FACES): 5 - Related Data Allergies Allergy/AdvReac Type Severity Reaction Status Date / Time Latex, Natural Rubber Allergy Cannot Verified 07/10/17 20:18 Remember Home Meds: Home Meds Citalopram [Citalopram HBr] 40 mg PO BEDTIME 09/04/14 [History] Levothyroxine 175 mcg PO QAM 12/29/14 [History] Fluticasone/Salmeterol [Advair 250-50] 1 puff INH BID 05/27/15 [History] Aspirin 81 mg PO QAM 05/29/15 [History] Pantoprazole 20 mg PO DAILY 04/13/16 [History] Calcium Carb/Vitamin D3/Vit K1 [Calcium + Vit D & K Chew] 1 tab PO DAILY [History] Cyanocobalamin (Vitamin B-12) [Vitamin B-12] 1,000 mcg SL DAILY 05/28/16 [ History] Folic Acid 1 mg PO DAILY 05/28/16 [History] Cyanocobalamin (Vitamin B12) [Vitamin B12] 1,000 mcg IJ Q14D 08/05/16 [History] Pediatric Multivit Comb No.42 [Flintstones] 1 each PO DAILY 08/05/16 [History] Cholecalciferol (Vitamin D3) [Vitamin D3] 5,000 unit PO DAILY 08/08/16 [History] amLODIPine [Norvasc] 5 mg PO DAILY #30 tablet 08/11/16 [Rx] Baclofen 1 tab PO BID PRN 10/22/16 [History] Cyclobenzaprine [Flexeril] 10 mg PO TID PRN 10/22/16 [History] Hydrocodone/Acetaminophen [Hydrocodon-Acetaminophen 5-325] 1 tab PO QID [History] Past Medical History HEENT History: Reports: Allergic Rhinitis, Cataract, Hard of Hearing, Impaired Vision, Other (See Below) Other HEENT History: deaf right ear Cardiovascular History: Reports: Angina, CAD, Heart Failure, High Cholesterol, Hypertension, [place], SOB on Exertion, Stents, Other (See Below) Other Cardiovascular History: recent chest pain Respiratory History: Reports: COPD, Pneumonia, Recurrent, Sleep Apnea, SOB, Other (See Below) Other Respiratory History: C pap at night. Home O2 at night. Gastrointestinal History: Reports: Hemorrhoids, Other (See Below) Other Gastrointestinal History: girth 63". 88 # wt loss since may. painful zyphoid process. 06/01/16 fluid filled mass removed from zyphoid process Musculoskeletal History: Reports: Arthritis, Back Pain, Chronic, Fracture, Osteoarthritis Other Musculoskeletal History: T1-C4 neck fusion, cortisone shots in knees/ shoulders Neurological History: Reports: Concussion Other Neuro History: pt has passed out at home 3 times in the last month, he has an apt with neurology 09/17/16 Psychiatric History: Reports: Depression Endocrine/Metabolic History: Reports: Hypothyroidism, Obesity/BMI 30+ Hematologic History: Reports: B12 Deficiency - Infectious Disease History Infectious Disease History: Reports: Chicken Pox, Mumps - Past Surgical History Head Surgeries/Procedures: Reports: None HEENT Surgical History: Reports: Cataract Surgery, Oral Surgery, Tonsillectomy Cardiovascular Surgical History: Reports: Coronary Artery Stent, Other (See Below) GI Surgical History: Reports: Bariatric Procedure, Cholecystectomy, Colonoscopy , EGD, Hernia, Abdominal, Polypectomy Male Surgical History: Reports: None Endocrine Surgical History: Reports: None Neurological Surgical History: Reports: C-Spine, Spinal Fusion Musculoskeletal Surgical History: Reports: Arthroscopic Knee Social & Family History - Family History Cardiac: Reports: CAD - Tobacco Use Smoking Status *Q: Former Smoker Years of Tobacco use: 40 Packs/Tins Daily: 1 Used Tobacco, but Quit: Yes Month Tobacco Last Used: november Second Hand Smoke Exposure: No - Caffeine Use Caffeine Use: Reports: Tea - Alcohol Use Days Per Week of Alcohol Use: 0 - Recreational Drug Use Recreational Drug Use: No - Living Situation & Occupation Living situation: Reports: , with Spouse Occupation: Retired Review of Systems - Review of Systems Review Of Systems: See Below Constitutional: Denies: Fever Respiratory: Denies: Shortness of Breath Cardiovascular: Denies: Chest Pain GI/Abdominal: Denies: Abdominal Pain, Nausea, Vomiting Skin: Reports: Bruising (Bruises easily, excoriations on the arms are chronic) Neurological: Denies: Headache ED EXAM, GENERAL - Physical Exam Exam: See Below Exam Limited By: No Limitations General Appearance: Alert, No Apparent Distress Respiratory/Chest: No Respiratory Distress Extremities: Other (Exam is otherwise limited to the left wrist. He is tender to palpation over the dorsal wrist into the snuffbox area of the radial side. Some mild to moderate lateral compression tenderness to the radius and ulna. No significant bruising, swelling or deformity) Course - Vital Signs Last Recorded V/S: Last Vital Signs Temp 98.4 F 07/10/17 20:18 Pulse 66 07/10/17 20:18 Resp 18 07/10/17 20:18 BP 145/120 H 07/10/17 20:18 Pulse Ox 96 07/10/17 20:18 - Orders/Labs/Meds Orders: Active Orders 24 hr Category Date Time Status Wrist Comp Min 3V Lt [CR] Stat Exams 07/10/17 20:33 Taken - Re-Assessments/Exams Free Text/Narrative Re-Assessment/Exam: 07/10/17 20:37 A left wrist x-ray was obtained. 07/10/17 21:06 X-ray shows arthritis but no fracture. A three-inch Maximilian wrap was applied to the wrist and the patient can increase activity as tolerated. Recheck with orthopedics in 5-10 days if not improving satisfactorily. Departure - Departure Time of Disposition: 21:17 Disposition: Home, Self-Care 01 Condition: Good Clinical Impression: Left wrist sprain Qualifiers: Encounter type: initial encounter Qualified Code(s): S63.502A - Unspecified sprain of left wrist, initial encounter - Discharge Information Instructions: Wrist Sprain Referrals: Yong Robledo MD [Primary Care Provider] - Forms: ED Department Discharge Care Plan Goals: Wear Maximilian wrap for support, increase activity as tolerated and consider rechecking in 5-7 days if not improving satisfactorily. - My Orders Last 24 Hours: My Active Orders 07/10/17 20:33 Wrist Comp Min 3V Lt [CR] Stat - Assessment/Plan Last 24 Hours: My Active Orders 07/10/17 20:33 Wrist Comp Min 3V Lt [CR] Stat
--- NOTE | 2017-07-12 10:38 | CR ---
No definitive acute fracture. There is some patchy sclerosis within the metaphysis which is likely re mote of the distal radius and could indicate old healed fracture. Old ulnar styloid process fracture. Tiny ossific density dorsal carpus likely is remote. Degenerative change first CMC joint. If symptom s persist recommend radiographic follow-up in 7-10 days
== END 2017-07-10 21:17 | disposition home or self-care (01) ==
LOC: JP.ED 19:56
DX: S63.502A Unspecified sprain of left wrist, initial encounter (principal); I11.0 Hypertensive heart disease with heart failure; I50.9 Heart failure, unspecified; J44.9 Chronic obstructive pulmonary disease, unspecified; G47.30 Sleep apnea, unspecified; F32.9 Major depressive disorder, single episode, unspecified; E03.9 Hypothyroidism, unspecified; Z95.5 Presence of coronary angioplasty implant and graft; Z79.82 Long term (current) use of aspirin; Z79.899 Other long term (current) drug therapy; Z91.040 Latex allergy status; Z87.891 Personal history of nicotine dependence; W19.XXXA Unspecified fall, initial encounter
CPT/HCPCS: 73110-26-LT; 73110-LT; 99283; 99284

== ENCOUNTER 2017-11-02 14:42 | Emergency (ER) | payer MEDICAID ==
[2017-11-02 15:52] VITALS: BP 128/76
[2017-11-02] MEDS ORDERED: Ketorolac 60 MG/2 ML SDV IM ONE (17:05)
--- NOTE | 2017-11-02 17:10 | EDM.PDOC ---
ED HPI GENERAL MEDICAL PROBLEM - General Chief Complaint: Back Pain or Injury Stated Complaint: LOW BACK/SCIATIC PAIN Time Seen by Provider: 11/02/17 17:12 Source of Information: Reports: Patient History Limitations: Reports: No Limitations - History of Present Illness INITIAL COMMENTS - FREE TEXT/NARRATIVE: pt has a long history of lumbar disc disease with occassional flares of sciatic like pain. He has had a flare for a couple of days. He is being followed at [facility] with Dr Shore. Onset: Other ( yesterday. ) Duration: Hour(s):, Getting Worse Location: Reports: Back Associated Symptoms: Reports: No Other Symptoms Lower Back Pain Score (Numeric/FACES): 9 - Related Data Allergies Allergy/AdvReac Type Severity Reaction Status Date / Time Latex, Natural Rubber Allergy Cannot Verified 07/10/17 20:18 Remember Home Meds: Home Meds Citalopram [Citalopram HBr] 40 mg PO BEDTIME 09/04/14 [History] Levothyroxine 175 mcg PO QAM 12/29/14 [History] Aspirin 81 mg PO QAM 05/29/15 [History] Pantoprazole 20 mg PO DAILY 04/13/16 [History] Calcium Carb/Vitamin D3/Vit K1 [Calcium + Vit D & K Chew] 1 tab PO DAILY [History] Cyanocobalamin (Vitamin B-12) [Vitamin B-12] 1,000 mcg SL DAILY 05/28/16 [ History] Folic Acid 1 mg PO DAILY 05/28/16 [History] Cyanocobalamin (Vitamin B12) [Vitamin B12] 1,000 mcg IJ Q14D 08/05/16 [History] Pediatric Multivit Comb No.42 [Flintstones] 1 each PO DAILY 08/05/16 [History] Cholecalciferol (Vitamin D3) [Vitamin D3] 5,000 unit PO DAILY 08/08/16 [History] amLODIPine [Norvasc] 5 mg PO DAILY #30 tablet 08/11/16 [Rx] Baclofen 1 tab PO BID PRN 10/22/16 [History] Cyclobenzaprine [Flexeril] 10 mg PO TID PRN 10/22/16 [History] Hydrocodone/Acetaminophen [Hydrocodon-Acetaminophen 5-325] 1 tab PO QID [History] Budesonide/Formoterol Fumarate [Symbicort 80-4.5 Mcg Inhaler] 11/02/17 [History ] Past Medical History HEENT History: Reports: Allergic Rhinitis, Cataract, Hard of Hearing, Impaired Vision, Other (See Below) Other HEENT History: deaf right ear Cardiovascular History: Reports: Angina, CAD, Heart Failure, High Cholesterol, Hypertension, [place], SOB on Exertion, Stents, Other (See Below) Other Cardiovascular History: recent chest pain Respiratory History: Reports: COPD, Pneumonia, Recurrent, Sleep Apnea, SOB, Other (See Below) Other Respiratory History: C pap at night. Home O2 at night. Gastrointestinal History: Reports: Hemorrhoids, Other (See Below) Other Gastrointestinal History: girth 63". 88 # wt loss since may. painful zyphoid process. 06/01/16 fluid filled mass removed from zyphoid process Musculoskeletal History: Reports: Arthritis, Back Pain, Chronic, Fracture, Osteoarthritis Other Musculoskeletal History: T1-C4 neck fusion, cortisone shots in knees/ shoulders Neurological History: Reports: Concussion Other Neuro History: pt has passed out at home 3 times in the last month, he has an apt with neurology 09/17/16 Psychiatric History: Reports: Depression Endocrine/Metabolic History: Reports: Hypothyroidism, Obesity/BMI 30+ Hematologic History: Reports: B12 Deficiency - Infectious Disease History Infectious Disease History: Reports: Chicken Pox, Mumps - Past Surgical History Head Surgeries/Procedures: Reports: None HEENT Surgical History: Reports: Cataract Surgery, Oral Surgery, Tonsillectomy Cardiovascular Surgical History: Reports: Coronary Artery Stent, Other (See Below) GI Surgical History: Reports: Bariatric Procedure, Cholecystectomy, Colonoscopy , EGD, Hernia, Abdominal, Polypectomy Male Surgical History: Reports: None Endocrine Surgical History: Reports: None Neurological Surgical History: Reports: C-Spine, Spinal Fusion Musculoskeletal Surgical History: Reports: Arthroscopic Knee Social & Family History - Family History Cardiac: Reports: CAD - Tobacco Use Smoking Status *Q: Never Smoker - Caffeine Use Caffeine Use: Reports: Coffee, Soda - Recreational Drug Use Recreational Drug Use: No - Living Situation & Occupation Living situation: Reports: , with Spouse Occupation: Retired ED ROS GENERAL - Review of Systems Review Of Systems: See Below Constitutional: Reports: No Symptoms HEENT: Reports: No Symptoms Respiratory: Reports: No Symptoms Cardiovascular: Reports: No Symptoms Endocrine: Reports: No Symptoms GI/Abdominal: Reports: No Symptoms : Reports: No Symptoms Musculoskeletal: Reports: Back Pain, Other ( Pt has pain in the rt lower back and it is radiating down the left leg. ) Skin: Reports: No Symptoms Neurological: Reports: No Symptoms ED EXAM,LOWER BACK PAIN/INJURY - Physical Exam Exam: See Below Text/Narrative:: Pt arrived with pain in the left lower back radiating down the left leg. He sees this as a acute flare. Exam Limited By: No Limitations General Appearance: Alert Ears: Normal TMs Nose: Normal Inspection Throat/Mouth: Normal Inspection Head: Atraumatic Neck: Normal Inspection Back Exam: Other (Pt is tender over the left lower back and down the left leg. ) Extremities: Normal Inspection Neurological: Normal Plantar Flexion, Oriented x 3 Course - Vital Signs Last Recorded V/S: Last Vital Signs Temp 36.3 C 11/02/17 16:05 Pulse 73 11/02/17 16:05 Resp 16 11/02/17 16:05 BP 128/76 11/02/17 16:05 Pulse Ox 95 11/02/17 16:05 - Orders/Labs/Meds Meds: Medications Discontinued Medications Generic Name Dose Route Start Last Admin Trade Name Freq PRN Reason Stop Dose Admin Ketorolac Tromethamine 60 mg 11/02/17 17:05 11/02/17 17:10 Toradol IM 11/02/17 17:06 60 mg ONETIME ONE Administration - Re-Assessments/Exams Free Text/Narrative Re-Assessment/Exam: 11/02/17 17:16 pt was given torodol 60mg im. Departure - Departure Time of Disposition: 17:08 Disposition: Home, Self-Care 01 Condition: Fair Clinical Impression: Lumbar disc disease - Discharge Information Referrals: Harry Stapleton MD [Primary Care Provider] - Forms: ED Department Discharge Care Plan Goals: heat or ice to the lumbar area, Heat or ice to the area. torodol 10mg tid for 5 days.
== END 2017-11-02 17:17 | disposition home or self-care (01) ==
LOC: JP.ED 14:42
DX: M51.36 Other intervertebral disc degeneration, lumbar region (principal); I11.0 Hypertensive heart disease with heart failure; I50.9 Heart failure, unspecified; J44.9 Chronic obstructive pulmonary disease, unspecified; M19.90 Unspecified osteoarthritis, unspecified site; Z91.040 Latex allergy status; Z79.899 Other long term (current) drug therapy
CPT/HCPCS: 96372; 99283; J1885

== ENCOUNTER 2017-11-20 14:08 | Emergency (ER) | payer MEDICAID ==
[2017-11-20 15:30] VITALS: BP 141/77
[2017-11-20] MEDS ORDERED: Ketorolac 60 MG/2 ML SDV IM ONE (16:56)
--- NOTE | 2017-11-20 17:03 | EDM.PDOC ---
ED HPI GENERAL MEDICAL PROBLEM - General Chief Complaint: Back Pain or Injury Stated Complaint: BACK PAIN Time Seen by Provider: 11/20/17 16:56 Source of Information: Reports: Patient History Limitations: Reports: No Limitations - History of Present Illness INITIAL COMMENTS - FREE TEXT/NARRATIVE: pt arrived because his pain is alot worse than usual. He does benefit usually from a torodol injection. He is in the process of more Doctors and he will be seeing Dr Swanson. Onset: Other ( last few days. ) Duration: Hour(s): Location: Reports: Back Quality: Reports: Sharp, Stabbing Associated Symptoms: Reports: Weakness, Other (pt does have episodes when his pain is so bad when he feels qute weak. ) - Related Data Allergies Allergy/AdvReac Type Severity Reaction Status Date / Time Latex, Natural Rubber Allergy Cannot Verified 11/20/17 15:30 Remember Home Meds: Home Meds Citalopram [Citalopram HBr] 40 mg PO BEDTIME 09/04/14 [History] Levothyroxine 175 mcg PO QAM 12/29/14 [History] Aspirin 81 mg PO QAM 05/29/15 [History] Pantoprazole 20 mg PO BID 04/13/16 [History] Calcium Carb/Vitamin D3/Vit K1 [Calcium + Vit D & K Chew] 1 tab PO DAILY [History] Cyanocobalamin (Vitamin B-12) [Vitamin B-12] 1,000 mcg SL DAILY 05/28/16 [ History] Folic Acid 1 mg PO DAILY 05/28/16 [History] Cyanocobalamin (Vitamin B12) [Vitamin B12] 1,000 mcg IJ Q14D 08/05/16 [History] Pediatric Multivit Comb No.42 [Flintstones] 1 each PO DAILY 08/05/16 [History] Cholecalciferol (Vitamin D3) [Vitamin D3] 5,000 unit PO DAILY 08/08/16 [History] amLODIPine [Norvasc] 5 mg PO DAILY #30 tablet 08/11/16 [Rx] Baclofen 1 tab PO BID PRN 10/22/16 [History] Cyclobenzaprine [Flexeril] 10 mg PO TID PRN 10/22/16 [History] Hydrocodone/Acetaminophen [Hydrocodon-Acetaminophen 5-325] 1 tab PO QID [History] Budesonide/Formoterol Fumarate [Symbicort 80-4.5 Mcg Inhaler] 2 inhalation INH BID 11/02/17 [History] Past Medical History HEENT History: Reports: Allergic Rhinitis, Cataract, Hard of Hearing, Impaired Vision, Other (See Below) Other HEENT History: deaf right ear Cardiovascular History: Reports: Angina, CAD, Heart Failure, High Cholesterol, Hypertension, [place], SOB on Exertion, Stents, Other (See Below) Other Cardiovascular History: recent chest pain Respiratory History: Reports: COPD, Pneumonia, Recurrent, Sleep Apnea, SOB, Other (See Below) Other Respiratory History: C pap at night. Home O2 at night. Gastrointestinal History: Reports: Hemorrhoids, Other (See Below) Other Gastrointestinal History: girth 63". 88 # wt loss since may. painful zyphoid process. 06/01/16 fluid filled mass removed from zyphoid process Musculoskeletal History: Reports: Arthritis, Back Pain, Chronic, Fracture, Osteoarthritis Other Musculoskeletal History: T1-C4 neck fusion, cortisone shots in knees/ shoulders Neurological History: Reports: Concussion Other Neuro History: pt has passed out at home 3 times in the last month, he has an apt with neurology 09/17/16 Psychiatric History: Reports: Depression Endocrine/Metabolic History: Reports: Hypothyroidism, Obesity/BMI 30+ Hematologic History: Reports: B12 Deficiency - Infectious Disease History Infectious Disease History: Reports: Chicken Pox, Mumps - Past Surgical History Head Surgeries/Procedures: Reports: None HEENT Surgical History: Reports: Cataract Surgery, Oral Surgery, Tonsillectomy Cardiovascular Surgical History: Reports: Coronary Artery Stent GI Surgical History: Reports: Bariatric Procedure, Cholecystectomy, Colonoscopy , EGD, Hernia, Abdominal, Polypectomy Male Surgical History: Reports: None Endocrine Surgical History: Reports: None Neurological Surgical History: Reports: C-Spine, Spinal Fusion Musculoskeletal Surgical History: Reports: Arthroscopic Knee Social & Family History - Family History Cardiac: Reports: CAD - Tobacco Use Smoking Status *Q: Former Smoker Years of Tobacco use: 30 Packs/Tins Daily: 0.5 Used Tobacco, but Quit: Yes Month/Year Tobacco Last Used: 10/1989 Second Hand Smoke Exposure: Yes - Caffeine Use Caffeine Use: Reports: Tea - Recreational Drug Use Recreational Drug Use: No - Living Situation & Occupation Living situation: Reports: , with Spouse Occupation: Retired ED ROS GENERAL - Review of Systems Review Of Systems: See Below Constitutional: Reports: No Symptoms HEENT: Reports: No Symptoms Respiratory: Reports: No Symptoms Cardiovascular: Reports: No Symptoms Endocrine: Reports: No Symptoms GI/Abdominal: Reports: No Symptoms : Reports: No Symptoms Musculoskeletal: Reports: Other (pain in the lower back. He has had a previous gastric bypass. ) ED EXAM,LOWER BACK PAIN/INJURY - Physical Exam Exam: See Below Text/Narrative:: pt arrived with increased \\pain in the left lower back. Exam Limited By: No Limitations General Appearance: Alert Back Exam: Paraspinal Tenderness, Other (pt is tender to palpate. ) Course - Vital Signs Last Recorded V/S: Last Vital Signs Temp 36.1 C 11/20/17 15:46 Pulse 67 11/20/17 15:46 Resp 16 11/20/17 15:46 BP 141/77 H 11/20/17 15:46 Pulse Ox 97 11/20/17 15:46 - Orders/Labs/Meds Orders: Active Orders 24 hr Category Date Time Status Ketorolac [Toradol] Med 11/20/17 16:56 Once 60 mg IM ONETIME ONE - Re-Assessments/Exams Free Text/Narrative Re-Assessment/Exam: 11/20/17 17:06 pt was givemn torodol 60mg im. His labs at the clinic were check and he had labs the end of september which showed good renal funtion. Departure - Departure Time of Disposition: 17:07 Disposition: Home, Self-Care 01 Condition: Fair Clinical Impression: Chronic back pain - Discharge Information Referrals: Harry Swanson MD [Primary Care Provider] - Care Plan Goals: cool packs or moit heat to the back cont other med, set up a earlier appt with Dr swanson, torodol 10mg q6h as needed for pain, no greater than 5 days. - My Orders Last 24 Hours: My Active Orders 11/20/17 16:56 Ketorolac [Toradol] 60 mg IM ONETIME ONE - Assessment/Plan Last 24 Hours: My Active Orders 11/20/17 16:56 Ketorolac [Toradol] 60 mg IM ONETIME ONE
== END 2017-11-20 17:20 | disposition home or self-care (01) ==
LOC: JP.ED 14:08
DX: G89.29 Other chronic pain (principal); M54.9 Dorsalgia, unspecified; I25.10 Atherosclerotic heart disease of native coronary artery without angina pectoris; I11.0 Hypertensive heart disease with heart failure; I50.9 Heart failure, unspecified; E78.00 Pure hypercholesterolemia, unspecified; I25.2 Old myocardial infarction; Z91.040 Latex allergy status; Z79.899 Other long term (current) drug therapy; Z87.891 Personal history of nicotine dependence
CPT/HCPCS: 96372; 99283; J1885

== ENCOUNTER 2018-12-08 09:17 | Emergency (ER) | payer MEDICAID ==
[2018-12-08 10:25] VITALS: PULSE 85
--- NOTE | 2018-12-08 11:09 | EDM.PDOC ---
ED HPI GENERAL MEDICAL PROBLEM - General Chief Complaint: Drug or Alcohol Abuse Stated Complaint: MEDICAL [place]IA [place] Time Seen by Provider: 12/08/18 10:59 Source of Information: Reports: Patient, Old Records, RN Notes Reviewed History Limitations: Reports: No Limitations - History of Present Illness INITIAL COMMENTS - FREE TEXT/NARRATIVE: 63-year-old gentleman presents emergency department today via EMS for lethargy and frequent falls at home. He does have a history of chronic back pain which she takes narcotics there is some question of May been confused and taking his Percocet 4 sleeping pills. He is arousable and will talk to me will follow commands states she's not having any pain at this time and he is not sure why he is in the emergency department - Related Data Allergies Allergy/AdvReac Type Severity Reaction Status Date / Time Latex, Natural Rubber Allergy Cannot Verified 12/08/18 09:22 Remember Home Meds: Home Meds Citalopram [Citalopram HBr] 40 mg PO BEDTIME 09/04/14 [History] Levothyroxine 150 mcg PO QAM 12/29/14 [History] Aspirin 81 mg PO QAM 05/29/15 [History] Pantoprazole 20 mg PO BID 04/13/16 [History] Calcium Carb/Vitamin D3/Vit K1 [Calcium + Vit D & K Chew] 1 tab PO DAILY [History] Cyanocobalamin (Vitamin B-12) [Vitamin B-12] 1,000 mcg SL DAILY 05/28/16 [ History] Folic Acid 1 mg PO DAILY 05/28/16 [History] Cyanocobalamin (Vitamin B12) [Vitamin B12] 1,000 mcg IJ Q14D 08/05/16 [History] Pediatric Multivit Comb No.42 [Flintstones] 1 each PO DAILY 08/05/16 [History] Cholecalciferol (Vitamin D3) [Vitamin D3] 5,000 unit PO DAILY 08/08/16 [History] Baclofen 1 tab PO BID PRN 10/22/16 [History] Cyclobenzaprine [Flexeril] 10 mg PO TID PRN 10/22/16 [History] Hydrocodone/Acetaminophen [Hydrocodon-Acetaminophen 5-325] 1 tab PO QID [History] DULoxetine HCl [Duloxetine HCl] 20 mg PO BID 12/08/18 [History] Fluticasone/Salmeterol [Advair 250-50 Diskus] 1 puff INH BID 12/08/18 [History] Magnesium Oxide 400 mg PO DAILY 12/08/18 [History] Metoprolol Succinate [Toprol XL] 12.5 mg PO DAILY 12/08/18 [History] atorvaSTATin [Lipitor] 10 mg PO BEDTIME 12/08/18 [History] Past Medical History HEENT History: Reports: Allergic Rhinitis, Cataract, Hard of Hearing, Impaired Vision, Other (See Below) Other HEENT History: deaf right ear Cardiovascular History: Reports: Angina, CAD, Heart Failure, High Cholesterol, Hypertension, [place], SOB on Exertion, Stents, Other (See Below) Other Cardiovascular History: recent chest pain Respiratory History: Reports: COPD, Pneumonia, Recurrent, Sleep Apnea, SOB, Other (See Below) Other Respiratory History: C pap at night. Home O2 at night. Gastrointestinal History: Reports: Hemorrhoids, Other (See Below) Other Gastrointestinal History: girth 63". 88 # wt loss since may. painful zyphoid process. 06/01/16 fluid filled mass removed from zyphoid process Musculoskeletal History: Reports: Arthritis, Back Pain, Chronic, Fracture, Osteoarthritis Other Musculoskeletal History: T1-C4 neck fusion, cortisone shots in knees/ shoulders Neurological History: Reports: Concussion Other Neuro History: pt has passed out at home 3 times in the last month, he has an apt with neurology 09/17/16 Psychiatric History: Reports: Depression Endocrine/Metabolic History: Reports: Hypothyroidism, Obesity/BMI 30+ Hematologic History: Reports: B12 Deficiency - Infectious Disease History Infectious Disease History: Reports: Chicken Pox, Mumps - Past Surgical History HEENT Surgical History: Reports: Cataract Surgery, Oral Surgery, Tonsillectomy Cardiovascular Surgical History: Reports: Coronary Artery Stent GI Surgical History: Reports: Bariatric Procedure, Cholecystectomy, Colonoscopy , EGD, Hernia, Abdominal, Polypectomy Neurological Surgical History: Reports: C-Spine, Spinal Fusion Musculoskeletal Surgical History: Reports: Arthroscopic Knee Social & Family History - Family History Cardiac: Reports: CAD - Tobacco Use Smoking Status *Q: Never Smoker - Caffeine Use Caffeine Use: Reports: None - Recreational Drug Use Recreational Drug Use: No - Living Situation & Occupation Living situation: Reports: , with Spouse Occupation: Retired ED ROS GENERAL - Review of Systems Review Of Systems: See Below Constitutional: Reports: No Symptoms HEENT: Reports: No Symptoms Respiratory: Reports: No Symptoms Cardiovascular: Reports: No Symptoms GI/Abdominal: Reports: No Symptoms : Reports: No Symptoms Musculoskeletal: Reports: No Symptoms Skin: Reports: No Symptoms Neurological: Reports: Other (frequent falls) ED EXAM, GENERAL - Physical Exam Exam: See Below Free Text/Narrative:: Examination the left knee he does have a superficial abrasion appreciated inferior to the patella no complaint of pain with manipulation Exam Limited By: Physical Impairment General Appearance: Lethargic Eye Exam: Bilateral Eye: Normal Inspection, PERRL Throat/Mouth: Normal Inspection, Normal Lips, No Airway Compromise, Other ( Mucosa is dry) Head: Atraumatic, Normocephalic Neck: Normal Inspection, Supple, Non-Tender, Full Range of Motion Respiratory/Chest: No Respiratory Distress, Lungs Clear, Normal Breath Sounds, No Accessory Muscle Use, Chest Non-Tender Cardiovascular: Regular Rate, Rhythm, No Murmur GI/Abdominal: Soft, Non-Tender Course - Vital Signs Last Recorded V/S: Last Vital Signs Temp 96.6 F 12/08/18 09:28 Pulse 85 12/08/18 10:24 Resp 14 12/08/18 10:24 BP 127/82 12/08/18 10:24 Pulse Ox 91 L 12/08/18 10:24 - Orders/Labs/Meds Orders: Active Orders 24 hr Category Date Time Status EKG Documentation Completion [RC] ASDIRECTED Care 12/08/18 11:08 Active EKG 12 Lead [EK] Stat Ther 12/08/18 11:08 Ordered Labs: Laboratory Tests 12/08/18 12/08/18 12/08/18 Range/Units 11:21 11:21 11:21 WBC 10.9 (4.5-11.0) K/uL RBC 4.58 (4.30-5.90) M/uL Hgb 13.5 (12.0-15.0) g/dL Hct 41.7 (40.0-54.0) % MCV 91 (80-98) fL MCH 30 (27-31) pg MCHC 32 (32-36) % Plt Count 290 (150-400) K/uL Neut % (Auto) 74 H (36-66) % Lymph % (Auto) 16 L (24-44) % [place] % (Auto) 8 H (2-6) % Eos % (Auto) 2 (2-4) % Baso % (Auto) 0 (0-1) % Puncture Site Rt radial ABG pH 7.364 (7.350-7.450) ABG pCO2 45.9 H (35.0-42.0) mmHg ABG pO2 75.6 (75.0-100.0) mmHg ABG HCO3 25.6 (22.0-26.0) mmol/L ABG Total CO2 22.8 L (23.0-27.0) mmol/L ABG O2 Saturation 94.2 L (95.0-98.0) % ABG O2 Content 18.0 (15.0-23.0) %vol ABG Base Excess 0.3 mm/L ABG Hemoglobin 13.8 (13.5-18.0) g/dL ABG Oxyhemoglobin 93.1 % ABG Carboxyhemoglobin 0.5 (0.0-1.6) % ABG Methemoglobin 0.7 % Louie Test Passed O2 Delivery Device Room air Sodium 139 L (140-148) mmol/L Potassium 4.2 (3.6-5.2) mmol/L Chloride 106 (100-108) mmol/L Carbon Dioxide 25 (21-32) mmol/L Anion Gap 12.2 (5.0-14.0) mmol/L BUN 11 (7-18) mg/dL Creatinine 1.0 (0.8-1.3) mg/dL Est Cr Clr Drug Dosing 72.47 mL/min Estimated GFR (MDRD) > 60 (>60) Glucose 95 (74-106) mg/dL Lactic Acid (0.4-2.0) mmol/L Calcium 8.8 (8.5-10.1) mg/dL Total Bilirubin 0.9 (0.2-1.0) mg/dL AST 160 H D (15-37) U/L ALT 63 (12-78) U/L Alkaline Phosphatase 124 H D (46-116) U/L Ammonia (11-32) mmol/L Troponin I (0.000-0.056) ng/mL Total Protein 6.3 L (6.4-8.2) g/dL Albumin 3.0 L (3.4-5.0) g/dL Globulin 3.3 (2.3-3.5) g/dL Albumin/Globulin Ratio 0.9 L (1.2-2.2) Urine Color Urine Appearance Urine pH (4.5-8.0) Ur Specific [place] (1.008-1.030) Urine Protein (NEGATIVE) mg/dL Urine Glucose (UA) (NEGATIVE) mg/dL Urine Ketones (NEGATIVE) mg/dL Urine Occult Blood (NEGATIVE) Urine Nitrite (NEGAITVE) Urine Bilirubin (NEGATIVE) Urine Urobilinogen (NORMAL) mg/dL Ur Leukocyte Esterase (NEGATIVE) Urine RBC (0-5) Urine WBC (0-5) Ur Epithelial Cells Amorphous Sediment Urine Bacteria Urine Mucus Urine Opiates Screen (NEGATIVE) Ur Oxycodone Screen (NEGATIVE) Urine Methadone Screen (NEGATIVE) Ur Propoxyphene Screen (NEGATIVE) Ur Barbiturates Screen (NEGATIVE) Ur Tricyclics Screen (NEGATIVE) Ur Phencyclidine Scrn (NEGATIVE) Ur Amphetamine Screen (NEGATIVE) U Methamphetamines Scrn (NEGATIVE) Urine MDMA Screen (NEGATIVE) U Benzodiazepines Scrn (NEGATIVE) U Cocaine Metab Screen (NEGATIVE) U Marijuana (THC) Screen (NEGATIVE) 12/08/18 12/08/18 12/08/18 Range/Units 11:21 11:21 11:21 WBC (4.5-11.0) K/uL RBC (4.30-5.90) M/uL Hgb (12.0-15.0) g/dL Hct (40.0-54.0) % MCV (80-98) fL MCH (27-31) pg MCHC (32-36) % Plt Count (150-400) K/uL Neut % (Auto) (36-66) % Lymph % (Auto) (24-44) % [place] % (Auto) (2-6) % Eos % (Auto) (2-4) % Baso % (Auto) (0-1) % Puncture Site ABG pH (7.350-7.450) ABG pCO2 (35.0-42.0) mmHg ABG pO2 (75.0-100.0) mmHg ABG HCO3 (22.0-26.0) mmol/L ABG Total CO2 (23.0-27.0) mmol/L ABG O2 Saturation (95.0-98.0) % ABG O2 Content (15.0-23.0) %vol ABG Base Excess mm/L ABG Hemoglobin (13.5-18.0) g/dL ABG Oxyhemoglobin % ABG Carboxyhemoglobin (0.0-1.6) % ABG Methemoglobin % Louie Test O2 Delivery Device Sodium (140-148) mmol/L Potassium (3.6-5.2) mmol/L Chloride (100-108) mmol/L Carbon Dioxide (21-32) mmol/L Anion Gap (5.0-14.0) mmol/L BUN (7-18) mg/dL Creatinine (0.8-1.3) mg/dL Est Cr Clr Drug Dosing mL/min Estimated GFR (MDRD) (>60) Glucose (74-106) mg/dL Lactic Acid 1.7 (0.4-2.0) mmol/L Calcium (8.5-10.1) mg/dL Total Bilirubin (0.2-1.0) mg/dL AST (15-37) U/L ALT (12-78) U/L Alkaline Phosphatase (46-116) U/L Ammonia 22 (11-32) mmol/L Troponin I < 0.017 (0.000-0.056) ng/mL Total Protein (6.4-8.2) g/dL Albumin (3.4-5.0) g/dL Globulin (2.3-3.5) g/dL Albumin/Globulin Ratio (1.2-2.2) Urine Color Urine Appearance Urine pH (4.5-8.0) Ur Specific [place] (1.008-1.030) Urine Protein (NEGATIVE) mg/dL Urine Glucose (UA) (NEGATIVE) mg/dL Urine Ketones (NEGATIVE) mg/dL Urine Occult Blood (NEGATIVE) Urine Nitrite (NEGAITVE) Urine Bilirubin (NEGATIVE) Urine Urobilinogen (NORMAL) mg/dL Ur Leukocyte Esterase (NEGATIVE) Urine RBC (0-5) Urine WBC (0-5) Ur Epithelial Cells Amorphous Sediment Urine Bacteria Urine Mucus Urine Opiates Screen (NEGATIVE) Ur Oxycodone Screen (NEGATIVE) Urine Methadone Screen (NEGATIVE) Ur Propoxyphene Screen (NEGATIVE) Ur Barbiturates Screen (NEGATIVE) Ur Tricyclics Screen (NEGATIVE) Ur Phencyclidine Scrn (NEGATIVE) Ur Amphetamine Screen (NEGATIVE) U Methamphetamines Scrn (NEGATIVE) Urine MDMA Screen (NEGATIVE) U Benzodiazepines Scrn (NEGATIVE) U Cocaine Metab Screen (NEGATIVE) U Marijuana (THC) Screen (NEGATIVE) 12/08/18 12/08/18 Range/Units 12:26 13:37 WBC (4.5-11.0) K/uL RBC (4.30-5.90) M/uL Hgb (12.0-15.0) g/dL Hct (40.0-54.0) % MCV (80-98) fL MCH (27-31) pg MCHC (32-36) % Plt Count (150-400) K/uL Neut % (Auto) (36-66) % Lymph % (Auto) (24-44) % [place] % (Auto) (2-6) % Eos % (Auto) (2-4) % Baso % (Auto) (0-1) % Puncture Site ABG pH (7.350-7.450) ABG pCO2 (35.0-42.0) mmHg ABG pO2 (75.0-100.0) mmHg ABG HCO3 (22.0-26.0) mmol/L ABG Total CO2 (23.0-27.0) mmol/L ABG O2 Saturation (95.0-98.0) % ABG O2 Content (15.0-23.0) %vol ABG Base Excess mm/L ABG Hemoglobin (13.5-18.0) g/dL ABG Oxyhemoglobin % ABG Carboxyhemoglobin (0.0-1.6) % ABG Methemoglobin % Louie Test O2 Delivery Device Sodium (140-148) mmol/L Potassium (3.6-5.2) mmol/L Chloride (100-108) mmol/L Carbon Dioxide (21-32) mmol/L Anion Gap (5.0-14.0) mmol/L BUN (7-18) mg/dL Creatinine (0.8-1.3) mg/dL Est Cr Clr Drug Dosing mL/min Estimated GFR (MDRD) (>60) Glucose (74-106) mg/dL Lactic Acid (0.4-2.0) mmol/L Calcium (8.5-10.1) mg/dL Total Bilirubin (0.2-1.0) mg/dL AST (15-37) U/L ALT (12-78) U/L Alkaline Phosphatase (46-116) U/L Ammonia (11-32) mmol/L Troponin I (0.000-0.056) ng/mL Total Protein (6.4-8.2) g/dL Albumin (3.4-5.0) g/dL Globulin (2.3-3.5) g/dL Albumin/Globulin Ratio (1.2-2.2) Urine Color Yellow Urine Appearance Clear Urine pH 7.0 (4.5-8.0) Ur Specific [place] 1.010 (1.008-1.030) Urine Protein Negative (NEGATIVE) mg/dL Urine Glucose (UA) Normal (NEGATIVE) mg/dL Urine Ketones Negative (NEGATIVE) mg/dL Urine Occult Blood Negative (NEGATIVE) Urine Nitrite Negative (NEGAITVE) Urine Bilirubin Negative (NEGATIVE) Urine Urobilinogen Normal (NORMAL) mg/dL Ur Leukocyte Esterase Negative (NEGATIVE) Urine RBC Not seen (0-5) Urine WBC Not seen (0-5) Ur Epithelial Cells Not seen Amorphous Sediment Rare Urine Bacteria Not seen Urine Mucus Not seen Urine Opiates Screen Negative (NEGATIVE) Ur Oxycodone Screen Negative (NEGATIVE) Urine Methadone Screen Negative (NEGATIVE) Ur Propoxyphene Screen Negative (NEGATIVE) Ur Barbiturates Screen Negative (NEGATIVE) Ur Tricyclics Screen Positive H (NEGATIVE) Ur Phencyclidine Scrn Negative (NEGATIVE) Ur Amphetamine Screen Negative (NEGATIVE) U Methamphetamines Scrn Negative (NEGATIVE) Urine MDMA Screen Negative (NEGATIVE) U Benzodiazepines Scrn Negative (NEGATIVE) U Cocaine Metab Screen Negative (NEGATIVE) U Marijuana (THC) Screen Negative (NEGATIVE) Meds: Medications Discontinued Medications Generic Name Dose Route Start Last Admin Trade Name Freq PRN Reason Stop Dose Admin Bacitracin 1 dose 12/08/18 12:08 12/08/18 12:16 Bacitracin Oint 1 Gm TOP 12/08/18 12:09 1 dose ONETIME ONE Administration Naloxone HCl 0.5 mg 12/08/18 13:07 12/08/18 13:40 Narcan IVPUSH 12/08/18 13:08 Not Given ONETIME ONE Naloxone HCl 0.4 mg 12/08/18 13:38 12/08/18 13:39 Narcan IVPUSH 0.4 mg ONETIME PRN Administration Pain Departure - Departure Time of Disposition: 13:55 Disposition: Home, Self-Care 01 Condition: Fair Clinical Impression: Lethargy - Discharge Information Referrals: PCP,None [Primary Care Provider] - Forms: ED Department Discharge Additional Instructions: Resume regular medications Please followup with your primary care provider in 3 -5 days if not better, please call return to the emergency department with worsening of symptoms., - My Orders Last 24 Hours: My Active Orders 12/08/18 11:08 EKG Documentation Completion [RC] ASDIRECTED EKG 12 Lead [EK] Stat - Assessment/Plan Last 24 Hours: My Active Orders 12/08/18 11:08 EKG Documentation Completion [RC] ASDIRECTED EKG 12 Lead [EK] Stat Plan: Assessment Acuity = acute Site and laterality = lethargy Etiology = [unclear etiology suspicious for taking incorrect medication Manifestations = [none Location of injury = Home Lab values = CBC unremarkable AST elevated 160 consistent elevated liver enzymes urine drug screen was positive for tricyclics ABG was unremarkable lactic acid normal Plan He did have good response to Narcan GCS went from approximate 14 to15 family feels he is back to his normal self discharged home follow-up primary care 3-5 days if not better This note was dictated using [employer] voice recognition software please call with any questions on syntax or grammar.
[2018-12-08] MEDS ORDERED: Bacitracin Oint 1 GM U/D Packet TOP ONE (12:08)
--- NOTE | 2018-12-08 12:17 | CRLCR ---
Fall pain 3 views of the left knee. FINDINGS: : Anterior soft tissue swelling. Normal alignment Mild degenerative change of the left knee. No acute fractures seen. No significant effusion. Dictated by Cassandra Netltes MD @ Dec 08 2018 12:15PM Signed by Dr. Cassandra Nettles @ Dec 08 2018 12:16PM
[2018-12-08] MEDS ORDERED: Naloxone 0.4 MG/ML SDV IVPUSH ONE (13:07)
[2018-12-08] MEDS ORDERED: Naloxone 0.4 MG/ML SDV IVPUSH PRN (13:38)
[2018-12-08 13:56] VITALS: BP 151/100
== END 2018-12-08 14:04 | disposition home or self-care (01) ==
LOC: JP.ED 09:17
DX: R53.83 Other fatigue (principal); I11.0 Hypertensive heart disease with heart failure; I50.9 Heart failure, unspecified; I25.10 Atherosclerotic heart disease of native coronary artery without angina pectoris; I25.2 Old myocardial infarction; M19.90 Unspecified osteoarthritis, unspecified site; E03.9 Hypothyroidism, unspecified; E66.9 Obesity, unspecified; F32.9 Major depressive disorder, single episode, unspecified; Z95.5 Presence of coronary angioplasty implant and graft; Z87.01 Personal history of pneumonia (recurrent); Z79.82 Long term (current) use of aspirin; Z79.899 Other long term (current) drug therapy; Z91.040 Latex allergy status; Z98.890 Other specified postprocedural states; Z98.49 Cataract extraction status, unspecified eye; Z98.84 Bariatric surgery status
CPT/HCPCS: 36600; 73562; 80053; 80305; 81001; 82140; 82803; 83605; 84484; 85025; 93005; 96374; 99284; J2310; 93010

== ENCOUNTER 2021-09-01 11:43 | Emergency (ER) | payer MEDICARE, BC ==
[2021-09-01 15:51] VITALS: BP 169/84; PULSE 82
== END 2021-09-01 16:16 | disposition home or self-care (01) ==
LOC: JP.ED 11:43
DX: R07.89 Other chest pain (principal); I11.0 Hypertensive heart disease with heart failure; I50.9 Heart failure, unspecified; E78.00 Pure hypercholesterolemia, unspecified; E66.9 Obesity, unspecified; J44.9 Chronic obstructive pulmonary disease, unspecified; Z68.41 Body mass index [BMI] 40.0-44.9, adult; Z91.040 Latex allergy status; Z79.899 Other long term (current) drug therapy; Z87.891 Personal history of nicotine dependence
CPT/HCPCS: 36415; 71046; 71046-26; 80053; 83880; 84484; 85025; 85379; 93005; 99283; 99285-25

== ENCOUNTER 2021-09-12 19:57 | Emergency (ER) | payer MEDICARE, BC ==
[2021-09-12] MEDS ORDERED: Nitroglycerin 0.4 MG Tab.SL SL PRN (20:57)
[2021-09-12] MEDS ORDERED: Pantoprazole 40 MG Tab.CR PO STA (21:30)
[2021-09-12 22:30] VITALS: BP 124/75; PULSE 64
[2021-09-12] MEDS ORDERED: Heparin Sodium 5,000 Units/ML Vial IVPUSH ONE (22:45)
[2021-09-12] MEDS ORDERED: Heparin Sodium/D5W 25,000 UNITS/500 ML BAG IV SCH (22:45)
== END 2021-09-12 23:30 ==
LOC: JP.ED 19:57
DX: I25.110 Atherosclerotic heart disease of native coronary artery with unstable angina pectoris (principal); J44.9 Chronic obstructive pulmonary disease, unspecified; I25.2 Old myocardial infarction; E78.00 Pure hypercholesterolemia, unspecified; I10 Essential (primary) hypertension; E03.9 Hypothyroidism, unspecified; E66.9 Obesity, unspecified; Z68.41 Body mass index [BMI] 40.0-44.9, adult; Z91.040 Latex allergy status; Z79.899 Other long term (current) drug therapy; Z87.891 Personal history of nicotine dependence; Z95.1 Presence of aortocoronary bypass graft
CPT/HCPCS: 36415; 80053; 82947; 84484; 85025; 85379; 93005; 93010; 96365; 99283; 99285-25; A9270-GY; J1644; U0002

== ENCOUNTER 2021-12-07 16:49 | Emergency (ER) | payer MEDICARE, BC ==
[2021-12-07 18:27] VITALS: BP 158/86; PULSE 68
[2021-12-07] MEDS ORDERED: HYDROmorphone 1 MG/ML Syringe IM ONE ×2 (18:36→20:38)
[2021-12-07] MEDS ORDERED: Ondansetron 4 MG Tab.DIS PO ONE (18:36)
[2021-12-07] MEDS ORDERED: Bacitracin Oint 1 GM U/D Packet TOP ONE (20:41)
== END 2021-12-07 21:20 | disposition home or self-care (01) ==
LOC: JP.ED 16:49
DX: S52.532A Colles' fracture of left radius, initial encounter for closed fracture (principal); I11.0 Hypertensive heart disease with heart failure; I50.9 Heart failure, unspecified; I25.10 Atherosclerotic heart disease of native coronary artery without angina pectoris; I25.2 Old myocardial infarction; J44.9 Chronic obstructive pulmonary disease, unspecified; E03.9 Hypothyroidism, unspecified; E66.9 Obesity, unspecified; Z68.30 Body mass index [BMI] 30.0-30.9, adult; Z91.040 Latex allergy status; Z79.899 Other long term (current) drug therapy; Z79.82 Long term (current) use of aspirin; Z90.49 Acquired absence of other specified parts of digestive tract; W01.0XXA Fall on same level from slipping, tripping and stumbling without subsequent striking against object, initial encounter
CPT/HCPCS: 73030; 73060; 73070; 73110; 96372; 99281; 99283; J1170; Q0162